=== PATIENT | female | born 1950 | race Caucasian/White ===

== ENCOUNTER 2017-09-28 14:20 | Inpatient (IN) | payer BC, OTHER ==
[2017-09-28 16:19] LABS: PLATELET COUNT 389 10^3/uL (150-400)
[2017-09-28] MEDS ORDERED: NS 1,000 ML IV ONE ×2 (17:24→19:55)
--- NOTE | 2017-09-28 17:31 | EDPHY ---
H & P Smoking Status: Former smoker Time Seen by Provider: 09/28/17 14:55 HPI/ROS: CHIEF COMPLAINT: Depression HISTORY OF PRESENT ILLNESS: 66-year-old female presents to the emergency department by private vehicle with her with ongoing symptoms of depression. The patient is scheduled for ECT tomorrow morning. She is here for medical clearance. Patient has no physical complaints. She denies chest pain or difficulty breathing. Denies abdominal pain. No vomiting or diarrhea. No headache. No neck or back pain. No reported trauma. She states that her appetite has been okay. No urinary symptoms. REVIEW OF SYSTEMS: Constitutional: No fever, no chills. Eyes: No double or blurry vision. ENT: No sore throat. Respiratory: No cough, no shortness of breath. Cardiac: No chest pain. Gastrointestinal: No abdominal pain, vomiting or diarrhea. Genitourinary: No dysuria. Musculoskeletal: No neck or back pain. Skin: No rashes. Neurological: No headache. (Mirlande Hunt) Past Medical/Surgical History: Depression, diabetic (Mirlande Hunt) Social History: (Mirlande Hunt) Physical Exam: General Appearance: Alert, no distress. at bedside. Eyes: Pupils equal and round. Extraocular motions are all intact. ENT: Mouth: Mucous membranes moist. Poor dentition. Respiratory: No wheezing, rhonchi, or rales, lungs are clear to auscultation. Cardiovascular: Regular rate and rhythm. Gastrointestinal: Abdomen is soft and nontender, no masses, no rebound or guarding, bowel sounds normal. Neurological: Alert and oriented x 3, cranial nerves II through XII grossly intact Skin: Warm and dry, no rashes. Musculoskeletal: Nontender to palpate along the cervical, thoracic or lumbar spine. Neck is supple. Extremities: Full range of motion and no peripheral edema. Psychiatric: Patient is oriented X 3, there is no agitation. (Mirlande Hunt) Constitutional: Initial Vital Signs Temperature (C) 36.8 C 09/28/17 14:34 Heart Rate 86 09/28/17 14:34 Respiratory Rate 18 09/28/17 14:34 Blood Pressure 103/78 09/28/17 14:34 O2 Sat (%) 97 09/28/17 14:34 O2 Delivery Mode Room Air Allergies/Adverse Reactions: No Known Allergies Allergy (Verified 09/28/17 14:36) Home Medications: Medication Instructions Recorded Atorvastatin Calcium [Lipitor 10 10 mg PO DAILY 09/28/17 mg (*)] Insulin Aspart [novoLOG] unit SQ 09/28/17 Insulin Glargine [Lantus 100 15 units SC BID 09/28/17 UNITS/ML (*)] Losartan Potassium [Cozaar 25 mg 25 mg PO 09/28/17 (*)] Lurasidone HCl [Latuda] 80 mg PO 09/28/17 Pantoprazole Sodium [Protonix 40mg 09/28/17 (*)] Pregabalin [Lyrica 50mg (*)] 50 mg PO BID 09/28/17 Triazolam [Halcion 0.25MG (*)] 0.25 mg PO HS 09/28/17 amLODIPine BESYLATE [Norvasc 2.5 2.5 mg PO DAILY 09/28/17 mg (*)] buPROPion [Wellbutrin] 300 mg PO 09/28/17 metFORMIN HCL [Metformin HCl ER] 1,000 mg PO 09/28/17 Medical Decision Making ED Course/Re-evaluation: This patient presents for ECT tomorrow. She has severe depression and has not been eating or drinking much. This is the most likely reason for her like to light abnormality. 1 L of normal saline given, with some correction in electrolytes. However, her bicarb remains low after the 1st L of normal saline , so a 2nd L of normal saline was given. Encouraged patient to drink plenty of fluids. She is medically cleared for mental health evaluation. She was seen by [facility] and will be transferred to [address] [place] [address] for ECT tomorrow. (Anel Fletcher) 66-year-old female presents to the emergency department for depression. She is here for medical clearance for scheduled ECT tomorrow. Patient had an EKG which revealed normal sinus rhythm. This is reviewed with Dr. Anel Fletcher. See interpretation in trace master. The case was discussed with Dr. Anel Fletcher, supervising physician, who did not directly evaluate the patient but agrees with treatment and plan. Laboratory studies reveal elevated potassium 5.8. CO2 14, BUN 31, creatinine 1.3, glucose 200 Patient received 1 L of IV normal saline and then her chemistries will be redrawn for evaluation. Chemistries include at after IV normal saline. Patient has been medically cleared and will be transferred to the mental health floor. (Mirlande Hunt) Differential Diagnosis: Depression including functional and major depression, situational depression, medication side effect, drugs and alcohol abuse. (Mirlande Hunt) - Data Points Laboratory Results: Laboratory Results 09/28/17 15:20 09/28/17 19:23 09/28/17 16:00 Iron 33.0 mcg/dL L mcg/dL (37.0-170.0) TIBC 260 ug/dL ug/dL (260-490) Iron Saturation 13 % L % (20-55) Medications Given: Amlodipine Besylate (Norvasc) 2.5 mg PO DAILY [facility] Stop: 03/28/18 08:59 Last Admin: 09/30/17 08:50 Dose: 2.5 mg Atorvastatin Calcium (Lipitor) 10 mg PO HS DARREL Stop: 03/27/18 22:29 Last Admin: 09/29/17 21:21 Dose: 10 mg Bupropion HCl (Wellbutrin Xl) 300 mg PO HS DARREL Stop: 03/27/18 22:44 Last Admin: 09/29/17 21:21 Dose: 300 mg Cholecalciferol (Vitamin D) 8,000 units PO DAILY [facility]REL Stop: 03/29/18 08:59 Last Admin: 09/30/17 08:47 Dose: 8,000 units Insulin Glargine (Lantus Syringe) 15 units SC BID DARREL Stop: 03/27/18 22:29 Last Admin: 09/30/17 08:52 Dose: 15 units Insulin Human Lispro (Humalog Lispro) 0 unit SC BID [facility] PRN Reason: Protocol Stop: 03/27/18 22:29 Last Admin: 09/30/17 08:53 Dose: Not Given Losartan Potassium (Cozaar) 25 mg PO DAILY DARREL Stop: 03/28/18 08:59 Last Admin: 09/30/17 08:54 Dose: 25 mg Lurasidone HCl (Latuda) 40 mg PO HS [facility] Stop: 03/28/18 20:59 Last Admin: 09/29/17 21:22 Dose: 40 mg Metformin HCl (Glucophage) 1,000 mg PO BIDMEAL DARREL Stop: 03/28/18 07:59 Last Admin: 09/30/17 08:52 Dose: 1,000 mg Pantoprazole Sodium (Protonix) 40 mg PO DAILY DARREL Stop: 03/28/18 08:59 Last Admin: 09/30/17 08:52 Dose: 40 mg Pregabalin (Lyrica) 50 mg PO BID DARREL Stop: 03/27/18 22:29 Last Admin: 09/30/17 08:50 Dose: 50 mg Quetiapine Fumarate (Seroquel) 25 mg PO HS DARREL Stop: 03/28/18 20:59 Last Admin: 09/29/17 21:23 Dose: 25 mg Discontinued Medications Citric Acid/Sodium Citrate (Bicitra) 30 ml PO ONCALL ONE Stop: 09/29/17 10:17 Last Admin: 09/29/17 14:18 Dose: 30 ml Sodium Chloride (Ns) 1,000 mls @ 0 mls/hr IV ONCE ONE PRN Reason: Wide Open Stop: 09/28/17 17:25 Last Admin: 09/28/17 18:30 Dose: 1,000 mls Sodium Chloride (Ns) 1,000 mls @ 0 mls/hr IV ONCE ONE; Wide Open PRN Reason: Protocol Stop: 09/28/17 19:56 Last Admin: 09/28/17 19:55 Dose: 1,000 mls Sodium Chloride (Ns) 1,000 mls @ 0 mls/hr IV ONCE ONE PRN Reason: TKO Stop: 09/29/17 10:17 Last Admin: 09/29/17 14:19 Dose: 1,000 mls Lidocaine HCl (Xylocaine-Mpf 2% Vial) 0.1 - 0.5 ml ID ONCE ONE Stop: 09/29/17 10:17 Last Admin: 09/29/17 23:20 Dose: Not Given Lurasidone HCl (Latuda) 80 mg PO HS DARREL Stop: 03/27/18 22:29 Last Admin: 09/28/17 22:54 Dose: 80 mg Ondansetron HCl (Zofran Odt) 4 mg PO ONCALL ONE Stop: 09/29/17 10:17 Last Admin: 09/29/17 14:19 Dose: 4 mg Ondansetron HCl (Zofran Odt) 4 mg PO ONCALL ONE Stop: 09/29/17 15:00 Last Admin: 09/29/17 23:20 Dose: Not Given Triazolam (Halcion) 0.25 mg PO HS [facility] Stop: 03/27/18 22:29 Last Admin: 09/28/17 23:17 Dose: 0.25 mg Departure - Departure Disposition: [facility] IP Clinical Impression: Dehydration Depression Qualifiers: Depression Type: unspecified Qualified Code(s): F32.9 - Major depressive disorder, single episode, unspecified Condition: Fair
[2017-09-28] MEDS ORDERED: D50W 25 GM/50 ML SYR IVP PRN (22:19)
[2017-09-28] MEDS ORDERED: ACETAMINOPHEN 325 MG TAB PO PRN (22:28)
[2017-09-28] MEDS ORDERED: MAGNESIUM HYDROXIDE 30 ML UDCUP PO PRN (22:29)
[2017-09-28] MEDS ORDERED: MAG HYDROX/AL HYDROX/SIMETH 30 ML UDCUP PO PRN (22:29)
[2017-09-28] MEDS ORDERED: LURASIDONE HCL 80 MG TAB PO SCH (22:30)
[2017-09-28] MEDS ORDERED: TRIAZOLAM 0.25 MG TAB PO SCH (22:30)
[2017-09-28] MEDS: ATORVASTATIN CALCIUM 10 MG TAB PO SCH (22:54)
[2017-09-28] MEDS: PREGABALIN 50 MG CAP PO SCH (22:54)
[2017-09-28] MEDS: buPROPion XL 150 MG TAB PO SCH (22:54)
[2017-09-28] MEDS: INSULIN GLARGINE 100 UNITS/ML SYRINGE SC SCH (23:17)
[2017-09-28] MEDS: INSULIN LISPRO 100 UNIT/ML SC SCH (23:20)
[2017-09-29] MEDS ORDERED: ETOMIDATE 20 MG/10 ML VIAL ONE (07:18)
[2017-09-29] MEDS ORDERED: fentaNYL 100 MCG/2 ML INJ ONE (07:18)
[2017-09-29] MEDS ORDERED: ROCURONIUM 50 MG/5 ML VIAL ONE (07:18)
[2017-09-29] MEDS ORDERED: SUCCINYLCHOLINE CHLORIDE 200 MG/10 ML VIAL ONE (07:18)
[2017-09-29] MEDS ORDERED: GLYCOPYRROLATE 0.2 MG/1 ML VIAL ONE (07:18)
[2017-09-29] MEDS ORDERED: MIDAZOLAM 2 MG/2 ML VIAL ONE (07:18)
[2017-09-29] MEDS ORDERED: ONDANSETRON 4 MG/2 ML VIAL ONE (07:18)
--- NOTE | 2017-09-29 08:57 | CPEKG ---
Heart Rate: 70 RR Interval: 857 P-R Interval: 160 QRSD Interval: 84 QT Interval: 408 QTC Interval: 441 P [place]: 20 QRS [place]: 8 T Wave [place]: 70 EKG Severity - NORMAL ECG - EKG Impression: SINUS RHYTHM Electronically Signed By: Tevin Qureshi 29-Sep-2017 11:26:12
[2017-09-29] MEDS ORDERED: PREGABALIN 75 MG CAP PO SCH (09:00)
[2017-09-29] MEDS ORDERED: LURASIDONE HCL 80 MG TAB PO SCH (10:14)
[2017-09-29] MEDS ORDERED: NS 1,000 ML IV ONE (10:16)
[2017-09-29] MEDS ORDERED: LIDOCAINE 2% 5 ML SDV ID ONE (10:16)
[2017-09-29] MEDS ORDERED: ONDANSETRON DISINTEGRATING 4 MG TAB PO ONE ×2 (10:16→14:59)
[2017-09-29] MEDS ORDERED: CITRIC ACID/SODIUM CITRATE 30 ML UDCUP PO ONE (10:16)
[2017-09-29] MEDS: LOSARTAN POTASSIUM 25 MG TAB PO SCH ×3 (10:52→12:25)
[2017-09-29] MEDS: PANTOPRAZOLE SODIUM 40 MG TAB PO SCH (10:54)
[2017-09-29] MEDS: amLODIPine BESYLATE 5 MG TAB PO SCH ×2 (10:54→12:23)
[2017-09-29] MEDS: INSULIN GLARGINE 100 UNITS/ML SYRINGE SC SCH ×2 (10:55→21:33)
[2017-09-29] MEDS: INSULIN LISPRO 100 UNIT/ML SC SCH ×2 (12:37→23:24)
[2017-09-29] MEDS: metFORMIN HCL 500 MG TAB PO SCH ×2 (12:39→17:11)
[2017-09-29] MEDS: PREGABALIN 50 MG CAP PO SCH ×2 (14:19→21:23)
--- NOTE | 2017-09-29 14:39 | BCON ---
[f rep st] BEHAVIORAL HEALTH CONSULTATION INTERNAL MEDICINE CONSULTATION DATE OF CONSULTATION: 09/29/2017 REFERRING PHYSICIAN: Vik Triplett MD REASON FOR REFERRAL: Medical clearance for inpatient behavioral health stay. HISTORY OF PRESENT ILLNESS: This patient came to the emergency department with her with ongoing symptoms of depression. She was planning to have electroconvulsive therapy today. She had no complaints in the emergency department and currently has no acute complaints. She was evaluated by the Mental Health Team and admitted for further psychiatric care. She is currently without any acute complaints. PAST MEDICAL HISTORY: 1. Pneumonia in July with a 3-week hospital stay. 2. Obesity with recent weight loss due to her hospitalization. 3. Diabetes mellitus type 2. 4. Chronic renal insufficiency. 5. Diabetic peripheral neuropathy. 6. Hypertension. 7. Dyslipidemia. PAST SURGICAL HISTORY: She has had a tonsillectomy, an appendectomy, back surgery for spinal stenosis, and bilateral carpal tunnel release. MEDICATIONS: Prior to admission: 1. Metformin 1000 mg p.o. twice daily. 2. Bupropion 300 mg p.o. daily. 3. Amlodipine 2.5 mg p.o. daily. 4. Triazolam 0.25 mg p.o. at bedtime. 5. Pregabalin 50 mg p.o. twice daily. 6. Pantoprazole. 7. Lurasidone 80 mg p.o. daily. 8. Losartan 25 mg p.o. daily. 9. Insulin glargine 15 units subcutaneous twice daily. 10. Insulin aspart. 11. Atorvastatin 10 mg p.o. daily. ALLERGIES: There are no known drug allergies. SOCIAL HISTORY: She is . She lives with her . She has 2 children who live out of state. She is a retired business operations manager. She is a former smoker. FAMILY HISTORY: Noncontributory. REVIEW OF SYSTEMS: She reports that she takes triazolam every night for sleep. She denies snoring and says she sleeps well. She has had some weight loss through her recent hospitalization, and has had a reduced appetite related to her depression. She denies nausea, vomiting, constipation, or diarrhea. She denies chest pain or palpitations. She denies cough or dyspnea. She denies fevers or chills. She denies dysuria or urinary frequency. Otherwise, a 10- point review of systems is negative. PHYSICAL EXAM: VITAL SIGNS: Blood pressure is 146/61, heart rate is 63, respiratory rate is 12, oxygen saturation is 96% on room air, temperature is 36.5 degrees centigrade. Her weight is 106.6 kg for a body mass index of 31. GENERAL: This is an obese woman, in bed with the lights off. Agrees to turn the lights on, and requires assistance to arise to seated from supine. She is cooperative and in no acute distress. HEENT: She is hard of hearing. Extraocular movements are intact. Pupils are equal, round, reactive to light. Mucous membranes are moist. Dentition is in good condition. She has a moderately crowded airway, Mallampati class 3. NECK: Supple. HEART: Regular rate and rhythm with no murmurs, rubs, or gallops. LUNGS: Clear to auscultation bilaterally. ABDOMEN: Soft, nontender, nondistended with normoactive bowel sounds. EXTREMITIES: There is no cyanosis, clubbing, or edema. Radial pulses are 2+ bilaterally. Pedal pulses are trace bilaterally. NEUROLOGIC: She is alert and oriented x3. Cranial nerves 2-12 are grossly intact. There is no focal weakness, but she has generalized weakness and requires assistance to arise to seated from supine. Sensation is intact to light touch overall, but profoundly lost over her feet and lower legs to light touch. LAB STUDIES: From the emergency department, CBC revealed anemia with a hemoglobin of 12.2 and hematocrit of 36.7, and an elevated white blood cell count at 13.65 with no left shift. Serum chemistry initially showed an anion gap, with a potassium of 5.8 and carbon dioxide of 14, the anion gap was at 20. She had an elevated BUN of 31 and creatinine of 1.3, with estimated GFR 41. She was hydrated with a liter of normal saline, and potassium normalized to 5.2 , and anion gap normalized as well. Carbon dioxide remained somewhat low at 15. She was subsequently given another liter of normal saline. Blood sugars were elevated in the range of 118-200. TSH was normal at 3.3. Toxicology screen in the urine was negative for any substances of abuse. EKG, interpreted by me, showed normal sinus rhythm. On review of recent previous labs, in June of this year, hemoglobin A1c was 6.4. Liver function tests were within normal limits. She did not have anemia at that time. She had an elevated urinary microalbumin at 52.1. IMPRESSION AND RECOMMENDATIONS: 1. Mental health issues, pending further evaluation and management per Psychiatry and the mental health team. 2. Debility. Physical therapy and Occupational therapy evaluations have been ordered by the attending psychiatrist, and this is quite appropriate for her to improve her functional status prior to return to home. 3. Chronic renal insufficiency, stage 3. She should avoid nephrotoxic drugs, and there should be some caution regarding dehydration, especially when she is nil per os for electroconvulsive therapy. Adequate hydration should be encouraged when she is not nil per os. 4. Diabetes mellitus type 2 with the last hemoglobin A1c of 6.4. She was not certain whether her glargine insulin had been reduced following her weight loss. She does report that she had 1 episode of hypoglycemia with a blood sugar of 22, otherwise blood sugars fasting have generally been in the range of 80-100. Continue to monitor blood sugars and consider reduction of insulin glargine, should she be running low. Would advise continuing metformin, which has been held today, though I am not clear whether there is an indication to hold metformin with electroconvulsive therapy, so I will defer to Psychiatry on that issue. 5. Diabetic peripheral neuropathy. This may affect her safety ambulating. She has a front-wheeled walker in the room, and will have a physical therapy evaluation. 6. Hypertension. Likely has adequate control with current antihypertensives. Continue to monitor and consider dose adjustment if necessary. 7. Dyslipidemia. Continue atorvastatin. 8. Anemia, unclear etiology. Will add on a reticulocyte count and an iron panel to the blood that was drawn yesterday in the emergency department. I see no medical contraindications to this patient's continued stay on the inpatient behavioral health unit, or to any psychiatric medications or procedures. Thank you very much for including me in the care of this patient. Please do not hesitate to contact me or the hospitalist service should there be need for further medical evaluation. /[id number]/MODL MTDD
[2017-09-29] MEDS ORDERED: PROMETHAZINE HCL 25 MG TAB PO PRN (14:57)
[2017-09-29] MEDS ORDERED: HYDROCODONE/APAP 5/325 TAB PO PRN (14:57)
[2017-09-29] MEDS ORDERED: HYDROCODONE/APAP 5/325 TAB ONE (16:10)
[2017-09-29] MEDS ORDERED: QUEtiapine FUMARATE 25 MG TAB PO SCH (21:00)
[2017-09-29] MEDS: buPROPion XL 150 MG TAB PO SCH (21:21)
[2017-09-29] MEDS: ATORVASTATIN CALCIUM 10 MG TAB PO SCH (21:21)
[2017-09-29] MEDS: LURASIDONE HCL 40 MG TAB PO SCH (21:22)
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
[2017-09-30] MEDS: CHOLECALCIFEROL VIT D3 1,000 UNITS TAB PO SCH (08:47)
[2017-09-30] MEDS: PREGABALIN 50 MG CAP PO SCH (08:50)
[2017-09-30] MEDS: amLODIPine BESYLATE 5 MG TAB PO SCH (08:50)
[2017-09-30] MEDS: PANTOPRAZOLE SODIUM 40 MG TAB PO SCH (08:52)
[2017-09-30] MEDS: INSULIN GLARGINE 100 UNITS/ML SYRINGE SC SCH ×2 (08:52→20:26)
[2017-09-30] MEDS: metFORMIN HCL 500 MG TAB PO SCH ×2 (08:52→17:58)
[2017-09-30] MEDS: INSULIN LISPRO 100 UNIT/ML SC SCH ×2 (08:53→20:35)
[2017-09-30] MEDS: LOSARTAN POTASSIUM 25 MG TAB PO SCH (08:54)
[2017-09-30] MEDS ORDERED: QUEtiapine FUMARATE 25 MG TAB PO SCH (13:34)
--- NOTE | 2017-09-30 13:41 | SOAPPROG ---
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 depression, and DPN Plan: 09/30/17 13:35 Pt interviewed in her room, while she was lying down, fully awake. She had just been out in day room area, per patient as MD commented on his wish that she be more in the milieu. She felt only moderate [place], no nausea with first ECT. Tatum x1 with good effect. Pt felt no change in mood. Sleep was "poor" with d/c halcion, and start of seroquel 25 mg. Latuda remains at half her dose ( 40mg). SHe was found next to bed last evening. No injury sustained. Will increase seroquel to 50 mg and instructed pt to get up from bed more slowly. Will likely reduce Latuda to 20 mg soon. May need to try other sleep aids if seroquel 50 mg inadequate. Pt will likely dispo to Assisted Living post d/c. PT consult still pnd. Objective: Vital Signs Temp Pulse Resp BP Pulse Ox 36.8 C 103 H 16 123/55 H 93 09/30/17 06:00 09/30/17 06:00 09/30/17 06:00 09/30/17 06:00 09/30/17 06:00 Laboratory Results 09/29/17 13:47 ICD10 Worksheet Patient Problems: Problems Problem Status Onset Bipolar affective disorder, depressed Acute Dehydration Acute Depression Acute Diabetes Acute
--- NOTE | 2017-09-30 13:55 | SOAPPROG ---
SOAP Progress Note Assessment/Plan: Assessment: Iron deficiency anemia. Prescribed ferrous sulfate 325 mg p.o. q.day. This should continue for a month. Advise repeat CBC and iron panel in 1 month. She should have age-appropriate colon cancer screening as an outpatient. Diabetes mellitus type 2, adequate control with hemoglobin A1c of 6.5. No need to adjust insulin at present. 09/30/17 13:54 Subjective: Labs reviewed. Objective: Vital Signs Temp Pulse Resp BP Pulse Ox 36.8 C 103 H 16 123/55 H 93 09/30/17 06:00 09/30/17 06:00 09/30/17 06:00 09/30/17 06:00 09/30/17 06:00 Laboratory Results 09/29/17 13:47 ICD10 Worksheet Patient Problems: Problems Problem Status Onset Bipolar affective disorder, depressed Acute Dehydration Acute Depression Acute Diabetes Acute
[2017-09-30] MEDS: FERROUS SULFATE 325 MG TAB PO SCH (17:58)
[2017-09-30] MEDS: LURASIDONE HCL 40 MG TAB PO SCH (20:25)
[2017-09-30] MEDS: buPROPion XL 150 MG TAB PO SCH (20:25)
[2017-09-30] MEDS: QUEtiapine FUMARATE 50 MG TAB PO SCH (20:25)
[2017-09-30] MEDS: ATORVASTATIN CALCIUM 10 MG TAB PO SCH (20:26)
[2017-10-01] MEDS ORDERED: CITRIC ACID/SODIUM CITRATE 30 ML UDCUP PO ONE (04:00)
[2017-10-01] MEDS ORDERED: NS 1,000 ML IV ONE (04:00)
[2017-10-01] MEDS ORDERED: LIDOCAINE 2% 5 ML SDV ID ONE (04:00)
[2017-10-01] MEDS ORDERED: fentaNYL 100 MCG/2 ML INJ ONE (06:52)
[2017-10-01] MEDS ORDERED: GLYCOPYRROLATE 0.2 MG/1 ML VIAL ONE (06:53)
[2017-10-01] MEDS ORDERED: KETOROLAC 30 MG/1 ML SDV ONE (06:53)
[2017-10-01] MEDS ORDERED: ROCURONIUM 50 MG/5 ML VIAL ONE (06:53)
[2017-10-01] MEDS ORDERED: SUCCINYLCHOLINE CHLORIDE 200 MG/10 ML VIAL ONE (06:53)
[2017-10-01] MEDS ORDERED: ONDANSETRON 4 MG/2 ML VIAL ONE (06:53)
[2017-10-01] MEDS ORDERED: MIDAZOLAM 2 MG/2 ML VIAL ONE (06:53)
[2017-10-01] MEDS ORDERED: ETOMIDATE 20 MG/10 ML VIAL ONE (06:53)
[2017-10-01] MEDS: amLODIPine BESYLATE 5 MG TAB PO SCH (09:11)
[2017-10-01] MEDS: PANTOPRAZOLE SODIUM 40 MG TAB PO SCH (09:12)
[2017-10-01] MEDS: LOSARTAN POTASSIUM 25 MG TAB PO SCH (09:14)
[2017-10-01] MEDS: INSULIN LISPRO 100 UNIT/ML SC SCH ×2 (09:15→20:41)
[2017-10-01] MEDS ORDERED: ONDANSETRON DISINTEGRATING 4 MG TAB ONE (11:25)
[2017-10-01] MEDS ORDERED: LURASIDONE HCL 40 MG TAB PO SCH (12:00)
[2017-10-01] MEDS ORDERED: ONDANSETRON DISINTEGRATING 4 MG TAB PO PRN (12:02)
[2017-10-01] MEDS ORDERED: PROMETHAZINE HCL 25 MG TAB PO PRN (12:02)
[2017-10-01] MEDS ORDERED: HYDROCODONE/APAP 5/325 TAB PO PRN (12:02)
[2017-10-01] MEDS ORDERED: ONDANSETRON DISINTEGRATING 4 MG TAB PO ONE (12:03)
[2017-10-01] MEDS ORDERED: HYDROCODONE/APAP 5/325 TAB ONE (12:27)
--- NOTE | 2017-10-01 12:32 | SOAPPROG ---
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 depression, and DPN Plan: 09/30/17 13:35 Pt interviewed in her room, while she was lying down, fully awake. She had just been out in day room area, per patient as MD commented on his wish that she be more in the milieu. She felt only moderate LOCKWOOD, no nausea with first ECT. [place] x1 with good effect. Pt felt no change in mood. Sleep was "poor" with d/c halcion, and start of seroquel 25 mg. Latuda remains at half her dose ( 40mg). SHe was found next to bed last evening. No injury sustained. Will increase seroquel to 50 mg and instructed pt to get up from bed more slowly. Will likely reduce Latuda to 20 mg soon. May need to try other sleep aids if seroquel 50 mg inadequate. Pt will likely dispo to Assisted Living post d/c. PT consult still pnd. 10/01/17 12:27 Pt underwent ECT #2 today. No clinical change. Will add torradol for LOCKWOOD. Will cont to taper latuda to 20 mg. Started Iron. Pt states had Colonoscopy 4 years ago and was told not needed to return for 10 years. Will check hemoccult test. hs-CRP high, not surprising in context fo DM. May speak to benefit of anti inflammatory for depression. MTHFR pnd too. Will try to cont seroquel 50 for sleep for a couple of more nights before re-thinking it. Vit E and/or Gingko biloba can be tried as outpt for TD Objective: Vital Signs Temp Pulse Resp BP Pulse Ox 36.4 C 80 14 145/93 H 93 10/01/17 06:00 10/01/17 10:00 10/01/17 10:00 10/01/17 10:00 10/01/17 10:00 Laboratory Results 09/29/17 13:47 Laboratory Tests 09/28/17 09/28/17 09/28/17 15:20 16:00 16:00 Hct Absolute Retic Percent Retic Iron 33.0 L TIBC 260 Iron Saturation 13 L C-React Prot High Sens 5.3 TSH 3.300 09/29/17 13:47 Hct 35.4 L Absolute Retic 0.058 Percent Retic 1.41 Iron TIBC Iron Saturation C-React Prot High Sens TSH ICD10 Worksheet Patient Problems: Problems Problem Status Onset Bipolar affective disorder, depressed Acute Dehydration Acute Depression Acute Diabetes Acute
[2017-10-01] MEDS: CHOLECALCIFEROL VIT D3 1,000 UNITS TAB PO SCH (13:19)
[2017-10-01] MEDS: FERROUS SULFATE 325 MG TAB PO SCH (13:19)
[2017-10-01] MEDS: metFORMIN HCL 500 MG TAB PO SCH ×2 (13:20→18:08)
[2017-10-01] MEDS: INSULIN GLARGINE 100 UNITS/ML SYRINGE SC SCH (20:18)
[2017-10-01] MEDS: ATORVASTATIN CALCIUM 10 MG TAB PO SCH (20:19)
[2017-10-01] MEDS: PREGABALIN 50 MG CAP PO SCH (20:19)
[2017-10-01] MEDS: QUEtiapine FUMARATE 50 MG TAB PO SCH (20:19)
[2017-10-01] MEDS: buPROPion XL 150 MG TAB PO SCH (20:19)
[2017-10-02] MEDS: INSULIN GLARGINE 100 UNITS/ML SYRINGE SC SCH ×2 (09:03→20:16)
[2017-10-02] MEDS: metFORMIN HCL 500 MG TAB PO SCH ×2 (09:08→18:22)
[2017-10-02] MEDS: CHOLECALCIFEROL VIT D3 1,000 UNITS TAB PO SCH (09:08)
[2017-10-02] MEDS: PREGABALIN 50 MG CAP PO SCH ×2 (09:09→18:37)
[2017-10-02] MEDS: FERROUS SULFATE 325 MG TAB PO SCH (09:09)
[2017-10-02] MEDS: PANTOPRAZOLE SODIUM 40 MG TAB PO SCH (09:09)
[2017-10-02] MEDS: INSULIN LISPRO 100 UNIT/ML SC SCH ×2 (10:17→20:15)
[2017-10-02] MEDS: amLODIPine BESYLATE 5 MG TAB PO SCH (12:17)
[2017-10-02] MEDS: LOSARTAN POTASSIUM 25 MG TAB PO SCH (12:17)
--- NOTE | 2017-10-02 12:47 | SOAPPROG ---
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 depression, and DPN Plan: 09/30/17 13:35 Pt interviewed in her room, while she was lying down, fully awake. She had just been out in day room area, per patient as MD commented on his wish that she be more in the milieu. She felt only moderate LOCKWOOD, no nausea with first ECT. [place] x1 with good effect. Pt felt no change in mood. Sleep was "poor" with d/c halcion, and start of seroquel 25 mg. Latuda remains at half her dose ( 40mg). SHe was found next to bed last evening. No injury sustained. Will increase seroquel to 50 mg and instructed pt to get up from bed more slowly. Will likely reduce Latuda to 20 mg soon. May need to try other sleep aids if seroquel 50 mg inadequate. Pt will likely dispo to Assisted Living post d/c. PT consult still pnd. 10/01/17 12:27 Pt underwent ECT #2 today. No clinical change. Will add torradol for LOCKWOOD. Will cont to taper latuda to 20 mg. Started Iron. Pt states had Colonoscopy 4 years ago and was told not needed to return for 10 years. Will check hemoccult test. hs-CRP high, not surprising in context fo DM. May speak to benefit of anti inflammatory for depression. MTHFR pnd too. Will try to cont seroquel 50 for sleep for a couple of more nights before re-thinking it. Vit E and/or Gingko biloba can be tried as outpt for TD 10/02/17 12:4 10/02 Pt in day room eating lunch, Had another witnessed near-fall. Will place on LOS. Will d/c latuda altogether to decrease med SE burden. Will cont seroquel 50 mg qhs as pt said "its working" indicating sleep is better. Will cont acute inpt ECT. MTHFR and hemoccult pnd. 10/02/17 12:47 Objective: Vital Signs Temp Pulse Resp BP Pulse Ox 36.6 C 104 H 12 111/69 94 10/02/17 12:20 10/02/17 12:20 10/02/17 12:20 10/02/17 12:20 10/02/17 12:20 Laboratory Results 09/29/17 13:47 ICD10 Worksheet Patient Problems: Problems Problem Status Onset Bipolar affective disorder, depressed Acute Dehydration Acute Depression Acute Diabetes Acute
[2017-10-02] MEDS: ATORVASTATIN CALCIUM 10 MG TAB PO SCH (18:44)
[2017-10-02] MEDS: buPROPion XL 150 MG TAB PO SCH (18:44)
[2017-10-02] MEDS: QUEtiapine FUMARATE 50 MG TAB PO SCH (18:45)
[2017-10-03] MEDS ORDERED: NS 1,000 ML IV ONE (04:00)
[2017-10-03] MEDS ORDERED: LIDOCAINE 2% 5 ML SDV ID ONE (04:00)
[2017-10-03] MEDS ORDERED: CITRIC ACID/SODIUM CITRATE 30 ML UDCUP PO ONE (04:00)
[2017-10-03] MEDS ORDERED: ONDANSETRON 4 MG/2 ML VIAL ONE (05:50)
[2017-10-03] MEDS ORDERED: GLYCOPYRROLATE 0.2 MG/1 ML VIAL ONE (05:50)
[2017-10-03] MEDS ORDERED: fentaNYL 100 MCG/2 ML INJ ONE (05:50)
[2017-10-03] MEDS ORDERED: KETOROLAC 30 MG/1 ML SDV ONE (05:50)
[2017-10-03] MEDS ORDERED: ETOMIDATE 20 MG/10 ML VIAL ONE (05:50)
[2017-10-03] MEDS ORDERED: ROCURONIUM 50 MG/5 ML VIAL ONE (05:50)
[2017-10-03] MEDS ORDERED: MIDAZOLAM 2 MG/2 ML VIAL ONE (05:50)
[2017-10-03] MEDS ORDERED: SUCCINYLCHOLINE CHLORIDE 200 MG/10 ML VIAL ONE (05:51)
[2017-10-03] MEDS: PANTOPRAZOLE SODIUM 40 MG TAB PO SCH (08:41)
[2017-10-03] MEDS: LOSARTAN POTASSIUM 25 MG TAB PO SCH (08:41)
[2017-10-03] MEDS: amLODIPine BESYLATE 5 MG TAB PO SCH (08:43)
[2017-10-03] MEDS: FERROUS SULFATE 325 MG TAB PO SCH (08:43)
[2017-10-03] MEDS: INSULIN GLARGINE 100 UNITS/ML SYRINGE SC SCH ×2 (08:44→19:26)
[2017-10-03] MEDS: metFORMIN HCL 500 MG TAB PO SCH ×2 (09:28→17:12)
[2017-10-03] MEDS: INSULIN LISPRO 100 UNIT/ML SC SCH ×2 (10:23→19:26)
[2017-10-03] MEDS: PREGABALIN 50 MG CAP PO SCH ×2 (11:48→19:19)
[2017-10-03] MEDS ORDERED: ONDANSETRON DISINTEGRATING 4 MG TAB ONE (14:23)
[2017-10-03] MEDS ORDERED: OXYCODONE/APAP 5/325 TAB PO PRN (14:53)
[2017-10-03] MEDS ORDERED: ONDANSETRON DISINTEGRATING 4 MG TAB PO PRN (14:53)
[2017-10-03] MEDS ORDERED: PROMETHAZINE HCL 25 MG TAB PO PRN (14:53)
--- NOTE | 2017-10-03 15:03 | SOAPPROG ---
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 depression, and DPN Plan: 09/30/17 13:35 Pt interviewed in her room, while she was lying down, fully awake. She had just been out in day room area, per patient as MD commented on his wish that she be more in the milieu. She felt only moderate LOCKWOOD, no nausea with first ECT. [place] x1 with good effect. Pt felt no change in mood. Sleep was "poor" with d/c halcion, and start of seroquel 25 mg. Latuda remains at half her dose ( 40mg). SHe was found next to bed last evening. No injury sustained. Will increase seroquel to 50 mg and instructed pt to get up from bed more slowly. Will likely reduce Latuda to 20 mg soon. May need to try other sleep aids if seroquel 50 mg inadequate. Pt will likely dispo to Assisted Living post d/c. PT consult still pnd. 10/01/17 12:27 Pt underwent ECT #2 today. No clinical change. Will add torradol for LOCKWOOD. Will cont to taper latuda to 20 mg. Started Iron. Pt states had Colonoscopy 4 years ago and was told not needed to return for 10 years. Will check hemoccult test. hs-CRP high, not surprising in context fo DM. May speak to benefit of anti inflammatory for depression. MTHFR pnd too. Will try to cont seroquel 50 for sleep for a couple of more nights before re-thinking it. Vit E and/or Gingko biloba can be tried as outpt for TD 10/02/17 12:4 10/02 Pt in day room eating lunch, Had another witnessed near-fall. Will place on LOS. Will d/c latuda altogether to decrease med SE burden. Will cont seroquel 50 mg qhs as pt said "its working" indicating sleep is better. Will cont acute inpt ECT. MTHFR and hemoccult pnd. 10/02/17 12:47 10/03/17 14:59 Pt interviewed pre ECT. She reports sleeping better with seroquel 50, minus the latuda. Appetite not so great. Her QIDs remains 17 with a score of 1 on Q 12 ( indicating some SI). Mood still subjectively unchanged, poor. However, pt appears objectively a bit brighter in affect, even evincing a smile which I had yet to see. She was told of this encouraging observation. It is, of course, unclear whether objective brightening is function of ECT vs d/c of higher dose latuda with its presumed EPS/blunting. Appreciate CC note re attempts to find post d/c placement for pt in order to finish acute course in some structured settiing away from home. Objective: Vital Signs Temp Pulse Resp BP Pulse Ox 36.7 C 62 12 127/58 H 95 10/03/17 13:30 10/03/17 13:30 10/03/17 13:30 10/03/17 13:30 10/03/17 13:30 Laboratory Results 09/29/17 13:47 ICD10 Worksheet Patient Problems: Problems Problem Status Onset Bipolar affective disorder, depressed Acute Dehydration Acute Depression Acute Diabetes Acute
[2017-10-03] MEDS: CHOLECALCIFEROL VIT D3 1,000 UNITS TAB PO SCH (16:22)
[2017-10-03] MEDS: POLYETHYLENE GLYCOL 3350 17 GM PKT PO SCH (17:10)
[2017-10-03] MEDS: QUEtiapine FUMARATE 50 MG TAB PO SCH (19:19)
[2017-10-03] MEDS: ATORVASTATIN CALCIUM 10 MG TAB PO SCH (19:19)
[2017-10-03] MEDS: buPROPion XL 150 MG TAB PO SCH (19:19)
[2017-10-04] MEDS: INSULIN LISPRO 100 UNIT/ML SC SCH ×2 (08:29→20:11)
[2017-10-04] MEDS: metFORMIN HCL 500 MG TAB PO SCH ×2 (09:12→16:56)
[2017-10-04] MEDS: PREGABALIN 50 MG CAP PO SCH ×2 (09:13→19:56)
[2017-10-04] MEDS: amLODIPine BESYLATE 5 MG TAB PO SCH (09:13)
[2017-10-04] MEDS: FERROUS SULFATE 325 MG TAB PO SCH (09:13)
[2017-10-04] MEDS: PANTOPRAZOLE SODIUM 40 MG TAB PO SCH (09:13)
[2017-10-04] MEDS: CHOLECALCIFEROL VIT D3 1,000 UNITS TAB PO SCH (09:15)
[2017-10-04] MEDS: LOSARTAN POTASSIUM 25 MG TAB PO SCH (09:15)
[2017-10-04] MEDS: INSULIN GLARGINE 100 UNITS/ML SYRINGE SC SCH ×2 (09:16→20:31)
[2017-10-04] MEDS: POLYETHYLENE GLYCOL 3350 17 GM PKT PO SCH (09:16)
--- NOTE | 2017-10-04 13:11 | SOAPPROG ---
SOAP Progress Note Assessment/Plan: Assessment: Per Dr. Triplett's note: Assessment: TRD (MDD vs Bipolar vs due to medical condition) IDDM, poor mobility due to deconditioning. depression, and DPN Plan: 10/04/17 13:04 1. Patient remains in bed most of the day. Does not participate in groups or milieu activities. 2. No falls reported last night. Patient slept 8 hrs, but reported sleep quality as "bad." 3. UA indicates patient has UTI, culture pending. Will ask hospitalist to give recommendations for treatment. 4. Next ECT on Friday. Subjective: Met with patient, reviewed chart and d/w staff. Patient is lying in bed awake. She got up and went to dining area for breakfast, but has been in bed the rest of the day. She says her appetite is "OK" and sleep is "no better" than at home. She denies any trouble falling asleep or staying asleep last night. She denies any falls. She tells MD her mood is "worse" in hospital b/c "there's nothing to do" and "I'm bored." When MD suggests patient could attend groups throughout the day and socialize with other patients, she just rolls her eyes. Earlier, RN had suggested patient attend groups, and patient replied, "I'm not here for groups." She rates her depression 5/10. MD ordered UA b/c RN reported malodorous urine. When MD asked, patient denied burning or painful urination or urgency. Objective: Vital Signs Temp Pulse Resp BP Pulse Ox 36.7 C 72 20 112/54 L 94 10/04/17 06:00 10/04/17 06:00 10/04/17 06:00 10/04/17 09:15 10/04/17 06:00 Laboratory Results 09/29/17 13:47 MSE: Affect: Flat Mood: "Bored" TP: Linear, goal-directed TC: No SI/HI, no AH /VH, no psychotic sxs Insight/Judgment: Poor - Time Spent With Patient Time Spent With Patient: 20" - Pending Discharge Pending Discharge Within 24 Hours: No Pending Discharge Within 48 Hours: No ICD10 Worksheet Patient Problems: Problems Problem Status Onset Bipolar affective disorder, depressed Acute Dehydration Acute Depression Acute Diabetes Acute
--- NOTE | 2017-10-04 13:59 | SOAPPROG ---
SOAP Progress Note Assessment/Plan: Assessment: Urinalysis consistent with urinary tract infection however she has no symptoms. This is likely asymptomatic bacteriuria. Await culture and sensitivities; monitor for any signs is symptoms of urinary tract infection. Would not advise treatment at present. 10/04/17 13:57 Subjective: Asked to see patient about malodorous urine. Nursing obtained a urinalysis. Patient denies fevers, chills, flank pain, dysuria, or urinary frequency. Objective: Vital Signs Temp Pulse Resp BP Pulse Ox 36.7 C 72 20 112/54 L 94 10/04/17 06:00 10/04/17 06:00 10/04/17 06:00 10/04/17 09:15 10/04/17 06:00 Laboratory Results 09/29/17 13:47 Physical Exam - Physical Exam General Appearance: WD/WN, alert, no apparent distress, obese Respiratory: No respiratory distress, No accessory muscle use Skin: normal color, warm/dry Neuro/Psych: alert, normal mood/affect ICD10 Worksheet Patient Problems: Problems Problem Status Onset Bipolar affective disorder, depressed Acute Dehydration Acute Depression Acute Diabetes Acute
[2017-10-04] MEDS: ATORVASTATIN CALCIUM 10 MG TAB PO SCH (19:54)
[2017-10-04] MEDS: buPROPion XL 150 MG TAB PO SCH (19:55)
[2017-10-04] MEDS: QUEtiapine FUMARATE 50 MG TAB PO SCH (19:56)
[2017-10-05] MEDS: POLYETHYLENE GLYCOL 3350 17 GM PKT PO SCH (08:59)
[2017-10-05] MEDS: amLODIPine BESYLATE 5 MG TAB PO SCH (08:59)
[2017-10-05] MEDS: CHOLECALCIFEROL VIT D3 1,000 UNITS TAB PO SCH (09:01)
[2017-10-05] MEDS: FERROUS SULFATE 325 MG TAB PO SCH (09:02)
[2017-10-05] MEDS: LOSARTAN POTASSIUM 25 MG TAB PO SCH (09:02)
[2017-10-05] MEDS: metFORMIN HCL 500 MG TAB PO SCH ×2 (09:02→17:27)
[2017-10-05] MEDS: PREGABALIN 50 MG CAP PO SCH ×2 (09:02→21:36)
[2017-10-05] MEDS: PANTOPRAZOLE SODIUM 40 MG TAB PO SCH (09:02)
[2017-10-05] MEDS: INSULIN GLARGINE 100 UNITS/ML SYRINGE SC SCH ×2 (09:07→21:36)
[2017-10-05] MEDS: INSULIN LISPRO 100 UNIT/ML SC SCH ×2 (09:18→21:48)
--- NOTE | 2017-10-05 11:51 | SOAPPROG ---
SOAP Progress Note Assessment/Plan: Assessment: Per Dr. Triplett's note: Assessment: TRD (MDD vs Bipolar vs due to medical condition) IDDM, poor mobility due to deconditioning. depression, and DPN Plan: 10/04/17 13:04 1. Patient remains in bed most of the day. Does not participate in groups or milieu activities. 2. No falls reported last night. Patient slept 8 hrs, but reported sleep quality as "bad." 3. UA indicates patient has UTI, culture pending. Will ask hospitalist to give recommendations for treatment. 4. Next ECT on Friday. 10/05/17 11:47 1. Appreciate hospitalist, Dr. Hart, seeing patient yesterday. His recommendation is as follows: "Urinalysis consistent with urinary tract infection however she has no symptoms. This is likely asymptomatic bacteriuria. Await culture and sensitivities; monitor for any signs is symptoms of urinary tract infection. Would not advise treatment at present." This AM patient continues to deny any physical complaints associated with infection. 2. No falls last night. Patient slept 9 hrs. She has not needed any increase in sleep meds. 3. FSBS was 66 this AM, but patient patient spends most of the day in bed, so no sxs of hypoglycemia (lightheadedness, dizziness) were apparent. 4. Next ECT on Friday. 5. Today is patient's birthday and she reports being in "good mood." Subjective: Met with patient, reviewed chart and d/w staff. Patient is lying in bed napping. She wakes up pretty quickly when MD enters her room. She denies any falls, says she slept "really well' last night, and has no physical complaints. She is asymptomatic for UTI, despite positive culture. Today is patient's 67th birthday. All the other patients on unit made birthday cards for patient during group last night and presented them to patient at breakfast this AM. Meals are the only time patient gets out of bed. Patient was "very pleased" and "happy" with her cards. She says she is in "good mood" today b/c of her peers thoughtfulness. Objective: Vital Signs Temp Pulse Resp BP Pulse Ox 36.6 C 61 14 126/60 H 93 10/05/17 06:44 10/05/17 06:44 10/05/17 06:44 10/05/17 09:02 10/05/17 06:44 Laboratory Results 09/29/17 13:47 MSE: Affect: Euthymic Mood: "Happy" TP: Linear TC: Denies any SI/HI, no AH/ VH Insight/Judgment: Fair - Time Spent With Patient Time Spent With Patient: 20" - Pending Discharge Pending Discharge Within 24 Hours: No Pending Discharge Within 48 Hours: No ICD10 Worksheet Patient Problems: Problems Problem Status Onset Bipolar affective disorder, depressed Acute Dehydration Acute Depression Acute Diabetes Acute
[2017-10-05] MEDS: ATORVASTATIN CALCIUM 10 MG TAB PO SCH (21:35)
[2017-10-05] MEDS: QUEtiapine FUMARATE 50 MG TAB PO SCH (21:35)
[2017-10-05] MEDS: buPROPion XL 150 MG TAB PO SCH (21:36)
[2017-10-06] MEDS ORDERED: LIDOCAINE 2% 5 ML SDV ID ONE (04:00)
[2017-10-06] MEDS ORDERED: CITRIC ACID/SODIUM CITRATE 30 ML UDCUP PO ONE (04:00)
[2017-10-06] MEDS ORDERED: ONDANSETRON DISINTEGRATING 4 MG TAB PO ONE (04:00)
[2017-10-06] MEDS ORDERED: NS 1,000 ML IV ONE (04:00)
[2017-10-06] MEDS: LOSARTAN POTASSIUM 25 MG TAB PO SCH (06:21)
[2017-10-06] MEDS: amLODIPine BESYLATE 5 MG TAB PO SCH (06:22)
[2017-10-06] MEDS ORDERED: MIDAZOLAM 2 MG/2 ML VIAL ONE (07:12)
[2017-10-06] MEDS ORDERED: ETOMIDATE 20 MG/10 ML VIAL ONE (07:13)
[2017-10-06] MEDS ORDERED: fentaNYL 100 MCG/2 ML INJ ONE (07:13)
[2017-10-06] MEDS ORDERED: GLYCOPYRROLATE 0.2 MG/1 ML VIAL ONE (07:13)
[2017-10-06] MEDS ORDERED: ONDANSETRON 4 MG/2 ML VIAL ONE (07:13)
[2017-10-06] MEDS ORDERED: ROCURONIUM 50 MG/5 ML VIAL ONE (07:13)
[2017-10-06] MEDS ORDERED: KETOROLAC 30 MG/1 ML SDV ONE (07:13)
[2017-10-06] MEDS ORDERED: SUCCINYLCHOLINE CHLORIDE 200 MG/10 ML VIAL ONE (07:13)
[2017-10-06] MEDS ORDERED: ONDANSETRON DISINTEGRATING 4 MG TAB ONE (07:43)
[2017-10-06] MEDS ORDERED: ONDANSETRON DISINTEGRATING 4 MG TAB PO PRN (08:09)
[2017-10-06] MEDS ORDERED: HYDROCODONE/APAP 5/325 TAB PO PRN (08:09)
[2017-10-06] MEDS ORDERED: PROMETHAZINE HCL 25 MG TAB PO PRN (08:09)
--- NOTE | 2017-10-06 08:25 | SOAPPROG ---
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 depression, and DPN Plan: 09/30/17 13:35 Pt interviewed in her room, while she was lying down, fully awake. She had just been out in day room area, per patient as MD commented on his wish that she be more in the milieu. She felt only moderate LOCKWOOD, no nausea with first ECT. [place] x1 with good effect. Pt felt no change in mood. Sleep was "poor" with d/c halcion, and start of seroquel 25 mg. Latuda remains at half her dose ( 40mg). SHe was found next to bed last evening. No injury sustained. Will increase seroquel to 50 mg and instructed pt to get up from bed more slowly. Will likely reduce Latuda to 20 mg soon. May need to try other sleep aids if seroquel 50 mg inadequate. Pt will likely dispo to Assisted Living post d/c. PT consult still pnd. 10/01/17 12:27 Pt underwent ECT #2 today. No clinical change. Will add torradol for LOCKWOOD. Will cont to taper latuda to 20 mg. Started Iron. Pt states had Colonoscopy 4 years ago and was told not needed to return for 10 years. Will check hemoccult test. hs-CRP high, not surprising in context fo DM. May speak to benefit of anti inflammatory for depression. MTHFR pnd too. Will try to cont seroquel 50 for sleep for a couple of more nights before re-thinking it. Vit E and/or Gingko biloba can be tried as outpt for TD 10/02/17 12:4 10/02 Pt in day room eating lunch, Had another witnessed near-fall. Will place on LOS. Will d/c latuda altogether to decrease med SE burden. Will cont seroquel 50 mg qhs as pt said "its working" indicating sleep is better. Will cont acute inpt ECT. MTHFR and hemoccult pnd. 10/02/17 12:47 10/03/17 14:59 Pt interviewed pre ECT. She reports sleeping better with seroquel 50, minus the latuda. Appetite not so great. Her QIDs remains 17 with a score of 1 on Q 12 ( indicating some SI). Mood still subjectively unchanged, poor. However, pt appears objectively a bit brighter in affect, even evincing a smile which I had yet to see. She was told of this encouraging observation. It is, of course, unclear whether objective brightening is function of ECT vs d/c of higher dose latuda with its presumed EPS/blunting. Appreciate CC note re attempts to find post d/c placement for pt in order to finish acute course in some structured settiing away from home. 10/06/17 08:17 Appreciate MD and RN/CC notes from Weekend. Appreciate w/u for UTI, being followed by Dr Hart. Pt herself is under the assumption that it is normal colonization. No symptoms c/w UTI. Mood-jeff, pt feels no subjective change but is clearly a bit brighter in affect, able to smile and tell wry joke. He QIDs score is actually increased, consistent with her self-report of no change for the better. Sleep is described as not good, after pt declared seroquel to be helpful late last week. Appetite fair, she is eating and drinking. MTHFR is negative. No over ill effect of fairly quick d/c off of Latuda. No falls in last few days. Hopefully the d/c of latuda and halcion has benefited her gait and alertness. Objective: Vital Signs Temp Pulse Resp BP Pulse Ox 36.3 C 68 14 137/65 H 90 L 10/06/17 06:00 10/06/17 06:00 10/06/17 06:00 10/06/17 06:22 10/06/17 06:00 Laboratory Results 09/29/17 13:47 ICD10 Worksheet Patient Problems: Problems Problem Status Onset Bipolar affective disorder, depressed Acute Dehydration Acute Depression Acute Diabetes Acute
[2017-10-06] MEDS: metFORMIN HCL 500 MG TAB PO SCH ×2 (09:54→18:07)
[2017-10-06] MEDS: CHOLECALCIFEROL VIT D3 2,000 UNITS TAB/CAP PO SCH (09:55)
[2017-10-06] MEDS: PANTOPRAZOLE SODIUM 40 MG TAB PO SCH (09:55)
[2017-10-06] MEDS: FERROUS SULFATE 325 MG TAB PO SCH (09:55)
[2017-10-06] MEDS: PREGABALIN 50 MG CAP PO SCH ×2 (09:56→20:37)
[2017-10-06] MEDS: POLYETHYLENE GLYCOL 3350 17 GM PKT PO SCH (09:56)
[2017-10-06] MEDS: INSULIN GLARGINE 100 UNITS/ML SYRINGE SC SCH ×2 (09:59→20:38)
[2017-10-06] MEDS: INSULIN LISPRO 100 UNIT/ML SC SCH ×2 (10:13→20:44)
[2017-10-06] MEDS: ATORVASTATIN CALCIUM 10 MG TAB PO SCH (20:37)
[2017-10-06] MEDS: buPROPion XL 150 MG TAB PO SCH (20:37)
[2017-10-06] MEDS: QUEtiapine FUMARATE 50 MG TAB PO SCH (20:37)
[2017-10-07] MEDS: POLYETHYLENE GLYCOL 3350 17 GM PKT PO SCH (09:05)
[2017-10-07] MEDS: CHOLECALCIFEROL VIT D3 2,000 UNITS TAB/CAP PO SCH (09:05)
[2017-10-07] MEDS: PREGABALIN 50 MG CAP PO SCH ×2 (09:05→20:08)
[2017-10-07] MEDS: PANTOPRAZOLE SODIUM 40 MG TAB PO SCH (09:05)
[2017-10-07] MEDS: FERROUS SULFATE 325 MG TAB PO SCH (09:05)
[2017-10-07] MEDS: metFORMIN HCL 500 MG TAB PO SCH ×2 (09:06→17:50)
[2017-10-07] MEDS: INSULIN GLARGINE 100 UNITS/ML SYRINGE SC SCH ×2 (09:06→20:08)
[2017-10-07] MEDS: LOSARTAN POTASSIUM 25 MG TAB PO SCH (09:06)
[2017-10-07] MEDS: INSULIN LISPRO 100 UNIT/ML SC SCH ×2 (09:22→20:07)
[2017-10-07] MEDS: amLODIPine BESYLATE 5 MG TAB PO SCH (09:22)
--- NOTE | 2017-10-07 11:45 | SOAPPROG ---
SOAP Progress Note Assessment/Plan: Assessment: Plan: 10/07/17 11:44 MDD: Remains depressed. Continue current treatment plan inc: ECT. Continue contact isolation for ESBL. Subjective: Pt seen, chart reviewed, case discussed with Dr. Triplett. Contact precautions for ESBL noted. Pt is in bed. Staff reports she sleeps a lot during the day. They were able to get the call button to work and put the rails up on her bed, eliminating the need for LOS. Dr Triplett reports objective improvement in mood. Pt continues to feel depressed. Objective: Vital Signs Temp Pulse Resp BP Pulse Ox 36.7 C 67 18 114/56 L 93 10/07/17 05:59 10/07/17 05:59 10/07/17 05:59 10/07/17 09:22 10/07/17 05:59 Microbiology 10/04/17 12:46 Urine Culture - Final Urine,Clean Catch Klebsiella Pneumoniae Esbl Laboratory Results 09/29/17 13:47 - Time Spent With Patient Time Spent With Patient: 15" ICD10 Worksheet Patient Problems: Problems Problem Status Onset Bipolar affective disorder, depressed Acute Dehydration Acute Depression Acute Diabetes Acute
[2017-10-07] MEDS: ATORVASTATIN CALCIUM 10 MG TAB PO SCH (20:08)
[2017-10-07] MEDS: QUEtiapine FUMARATE 50 MG TAB PO SCH (20:08)
[2017-10-07] MEDS: buPROPion XL 150 MG TAB PO SCH (20:08)
[2017-10-08] MEDS ORDERED: NS 1,000 ML IV ONE (04:00)
[2017-10-08] MEDS ORDERED: CITRIC ACID/SODIUM CITRATE 30 ML UDCUP PO ONE (04:00)
[2017-10-08] MEDS ORDERED: ONDANSETRON DISINTEGRATING 4 MG TAB PO ONE (04:00)
[2017-10-08] MEDS ORDERED: LIDOCAINE 2% 5 ML SDV ID ONE (04:00)
[2017-10-08] MEDS: amLODIPine BESYLATE 5 MG TAB PO SCH (08:32)
[2017-10-08] MEDS: PANTOPRAZOLE SODIUM 40 MG TAB PO SCH (08:32)
[2017-10-08] MEDS: metFORMIN HCL 500 MG TAB PO SCH ×2 (08:32→16:54)
[2017-10-08] MEDS: LOSARTAN POTASSIUM 25 MG TAB PO SCH (08:33)
[2017-10-08] MEDS ORDERED: MIDAZOLAM 2 MG/2 ML VIAL ONE (10:26)
[2017-10-08] MEDS ORDERED: ROCURONIUM 50 MG/5 ML VIAL ONE (10:27)
[2017-10-08] MEDS ORDERED: ETOMIDATE 20 MG/10 ML VIAL ONE (10:27)
[2017-10-08] MEDS ORDERED: GLYCOPYRROLATE 0.2 MG/1 ML VIAL ONE (10:27)
[2017-10-08] MEDS ORDERED: ONDANSETRON 4 MG/2 ML VIAL ONE (10:27)
[2017-10-08] MEDS ORDERED: KETOROLAC 30 MG/1 ML SDV ONE (10:27)
[2017-10-08] MEDS ORDERED: SUCCINYLCHOLINE CHLORIDE 200 MG/10 ML VIAL ONE (10:27)
[2017-10-08] MEDS ORDERED: fentaNYL 100 MCG/2 ML INJ ONE (10:27)
[2017-10-08] MEDS: INSULIN GLARGINE 100 UNITS/ML SYRINGE SC SCH ×2 (10:37→20:46)
[2017-10-08] MEDS: INSULIN LISPRO 100 UNIT/ML SC SCH ×2 (10:37→20:41)
[2017-10-08] MEDS: POLYETHYLENE GLYCOL 3350 17 GM PKT PO SCH (10:51)
[2017-10-08] MEDS: CHOLECALCIFEROL VIT D3 2,000 UNITS TAB/CAP PO SCH (10:51)
[2017-10-08] MEDS: FERROUS SULFATE 325 MG TAB PO SCH (10:51)
[2017-10-08] MEDS: PREGABALIN 50 MG CAP PO SCH ×2 (10:52→20:40)
[2017-10-08] MEDS ORDERED: ONDANSETRON DISINTEGRATING 4 MG TAB ONE (15:26)
--- NOTE | 2017-10-08 17:25 | SOAPPROG ---
SOAP Progress Note Assessment/Plan: Assessment: Plan: 10/07/17 11:44 MDD: Remains depressed. Continue current treatment plan inc: ECT. Continue contact isolation for ESBL. 10/08/17 17:24 MDD: Brighter today. CCM. Subjective: Pt seen, discussed with staff. Was pleasant and upbeat in ECT today. Understands need for contact precautions. Mood is subjectively depressed, but appears bright today. Underwent ECT without complication under contact precautions in the ECT area. Objective: Vital Signs Temp Pulse Resp BP Pulse Ox 36.6 C 78 14 182/78 H 97 10/08/17 17:05 10/08/17 17:05 10/08/17 17:05 10/08/17 17:05 10/08/17 17:05 Laboratory Results 09/29/17 13:47 MSE: Calm, coop. Affect is bright, stable, approp. Mood is "fine." TP linear. TC reveals no evidence of psychosis. - Time Spent With Patient Time Spent With Patient: 35" ICD10 Worksheet Patient Problems: Problems Problem Status Onset Bipolar affective disorder, depressed Acute Dehydration Acute Depression Acute Diabetes Acute
[2017-10-08] MEDS: QUEtiapine FUMARATE 50 MG TAB PO SCH (20:40)
[2017-10-08] MEDS: buPROPion XL 150 MG TAB PO SCH (20:40)
[2017-10-08] MEDS: ATORVASTATIN CALCIUM 10 MG TAB PO SCH (20:40)
[2017-10-09] MEDS: CHOLECALCIFEROL VIT D3 2,000 UNITS TAB/CAP PO SCH (08:40)
[2017-10-09] MEDS: POLYETHYLENE GLYCOL 3350 17 GM PKT PO SCH (08:40)
[2017-10-09] MEDS: PREGABALIN 50 MG CAP PO SCH ×2 (08:41→19:33)
[2017-10-09] MEDS: FERROUS SULFATE 325 MG TAB PO SCH (08:41)
[2017-10-09] MEDS: PANTOPRAZOLE SODIUM 40 MG TAB PO SCH (08:41)
[2017-10-09] MEDS: metFORMIN HCL 500 MG TAB PO SCH ×2 (08:41→18:14)
[2017-10-09] MEDS: amLODIPine BESYLATE 5 MG TAB PO SCH (08:51)
[2017-10-09] MEDS: LOSARTAN POTASSIUM 25 MG TAB PO SCH (08:51)
--- NOTE | 2017-10-09 10:13 | SOAPPROG ---
SOAP Progress Note Assessment/Plan: Assessment: Plan: 10/07/17 11:44 MDD: Remains depressed. Continue current treatment plan inc: ECT. Continue contact isolation for ESBL. 10/08/17 17:24 MDD: Brighter today. CCM. 10/09/17 10:13 MDD. Continued objective improvement. CCM. Subjective: Pt seen, discussed with staff. Alert and interactive this morning. States he is "disappointed" that she isn't feeling better at this point in treatment. I discussed with her that she is still relatively early in the process. She asked intelligent question about response rates to ECT, etc. Continues to spend most of her time in bed, though is getting up four times a day per behavioral plan. Remains on contact precautions. Objective: Vital Signs Temp Pulse Resp BP Pulse Ox 36.7 C 77 16 117/58 L 92 10/09/17 06:00 10/09/17 06:00 10/09/17 06:00 10/09/17 08:51 10/09/17 06:00 Laboratory Results 09/29/17 13:47 MSE: Calm, coop. Grooming is marginal. Affect is blunted, stable, approp. Mood is "down." TP linear. TC reveals no psychosis. Cognition is grossly intact; A&Ox4. - Time Spent With Patient Time Spent With Patient: 15" ICD10 Worksheet Patient Problems: Problems Problem Status Onset Bipolar affective disorder, depressed Acute Dehydration Acute Depression Acute Diabetes Acute
[2017-10-09] MEDS: INSULIN GLARGINE 100 UNITS/ML SYRINGE SC SCH ×2 (10:19→18:13)
[2017-10-09] MEDS: INSULIN LISPRO 100 UNIT/ML SC SCH ×2 (10:20→18:15)
[2017-10-09] MEDS: ATORVASTATIN CALCIUM 10 MG TAB PO SCH (20:59)
[2017-10-09] MEDS: QUEtiapine FUMARATE 50 MG TAB PO SCH (21:00)
[2017-10-09] MEDS: buPROPion XL 150 MG TAB PO SCH (21:00)
[2017-10-10] MEDS ORDERED: CITRIC ACID/SODIUM CITRATE 30 ML UDCUP PO ONE (04:00)
[2017-10-10] MEDS ORDERED: ONDANSETRON DISINTEGRATING 4 MG TAB PO ONE (04:00)
[2017-10-10] MEDS ORDERED: LIDOCAINE 2% 5 ML SDV ID ONE (04:00)
[2017-10-10] MEDS ORDERED: NS 1,000 ML IV ONE (04:00)
[2017-10-10] MEDS ORDERED: ROCURONIUM 50 MG/5 ML VIAL ONE (05:43)
[2017-10-10] MEDS ORDERED: fentaNYL 100 MCG/2 ML INJ ONE (05:43)
[2017-10-10] MEDS ORDERED: ONDANSETRON 4 MG/2 ML VIAL ONE (05:43)
[2017-10-10] MEDS ORDERED: KETOROLAC 30 MG/1 ML SDV ONE (05:43)
[2017-10-10] MEDS ORDERED: GLYCOPYRROLATE 0.2 MG/1 ML VIAL ONE (05:43)
[2017-10-10] MEDS ORDERED: ETOMIDATE 20 MG/10 ML VIAL ONE (05:43)
[2017-10-10] MEDS ORDERED: MIDAZOLAM 2 MG/2 ML VIAL ONE (05:43)
[2017-10-10] MEDS ORDERED: SUCCINYLCHOLINE CHLORIDE 200 MG/10 ML VIAL ONE (05:44)
[2017-10-10 08:11] LABS: PLATELET COUNT 393 10^3/uL (150-400)
[2017-10-10] MEDS: PANTOPRAZOLE SODIUM 40 MG TAB PO SCH (10:09)
[2017-10-10] MEDS: FERROUS SULFATE 325 MG TAB PO SCH (10:09)
[2017-10-10] MEDS: metFORMIN HCL 500 MG TAB PO SCH ×2 (10:09→17:20)
[2017-10-10] MEDS: CHOLECALCIFEROL VIT D3 2,000 UNITS TAB/CAP PO SCH (10:10)
[2017-10-10] MEDS: POLYETHYLENE GLYCOL 3350 17 GM PKT PO SCH (10:11)
[2017-10-10] MEDS: amLODIPine BESYLATE 5 MG TAB PO SCH (10:33)
[2017-10-10] MEDS: LOSARTAN POTASSIUM 25 MG TAB PO SCH (10:35)
[2017-10-10] MEDS: INSULIN GLARGINE 100 UNITS/ML SYRINGE SC SCH ×2 (10:45→20:46)
[2017-10-10] MEDS: INSULIN LISPRO 100 UNIT/ML SC SCH ×2 (10:46→20:48)
[2017-10-10] MEDS: PREGABALIN 50 MG CAP PO SCH ×2 (10:47→20:46)
[2017-10-10] MEDS ORDERED: ONDANSETRON DISINTEGRATING 4 MG TAB ONE (15:45)
[2017-10-10] MEDS ORDERED: HYDROCODONE/APAP 5/325 TAB PO PRN (16:09)
[2017-10-10] MEDS ORDERED: PROMETHAZINE HCL 25 MG TAB PO PRN (16:09)
[2017-10-10] MEDS ORDERED: ONDANSETRON DISINTEGRATING 4 MG TAB PO PRN (16:09)
[2017-10-10] MEDS ORDERED: BISACODYL 10 MG SUPP PR ONE (16:11)
--- NOTE | 2017-10-10 16:22 | SOAPPROG ---
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 depression, and DPN Plan: 09/30/17 13:35 Pt interviewed in her room, while she was lying down, fully awake. She had just been out in day room area, per patient as MD commented on his wish that she be more in the milieu. She felt only moderate LOCKWOOD, no nausea with first ECT. [place] x1 with good effect. Pt felt no change in mood. Sleep was "poor" with d/c halcion, and start of seroquel 25 mg. Latuda remains at half her dose ( 40mg). SHe was found next to bed last evening. No injury sustained. Will increase seroquel to 50 mg and instructed pt to get up from bed more slowly. Will likely reduce Latuda to 20 mg soon. May need to try other sleep aids if seroquel 50 mg inadequate. Pt will likely dispo to Assisted Living post d/c. PT consult still pnd. 10/01/17 12:27 Pt underwent ECT #2 today. No clinical change. Will add torradol for LOCKWOOD. Will cont to taper latuda to 20 mg. Started Iron. Pt states had Colonoscopy 4 years ago and was told not needed to return for 10 years. Will check hemoccult test. hs-CRP high, not surprising in context fo DM. May speak to benefit of anti inflammatory for depression. MTHFR pnd too. Will try to cont seroquel 50 for sleep for a couple of more nights before re-thinking it. Vit E and/or Gingko biloba can be tried as outpt for TD 10/02/17 12:4 10/02 Pt in day room eating lunch, Had another witnessed near-fall. Will place on LOS. Will d/c latuda altogether to decrease med SE burden. Will cont seroquel 50 mg qhs as pt said "its working" indicating sleep is better. Will cont acute inpt ECT. MTHFR and hemoccult pnd. 10/02/17 12:47 10/03/17 14:59 Pt interviewed pre ECT. She reports sleeping better with seroquel 50, minus the latuda. Appetite not so great. Her QIDs remains 17 with a score of 1 on Q 12 ( indicating some SI). Mood still subjectively unchanged, poor. However, pt appears objectively a bit brighter in affect, even evincing a smile which I had yet to see. She was told of this encouraging observation. It is, of course, unclear whether objective brightening is function of ECT vs d/c of higher dose latuda with its presumed EPS/blunting. Appreciate CC note re attempts to find post d/c placement for pt in order to finish acute course in some structured settiing away from home. 10/06/17 08:17 Appreciate MD and RN/CC notes from Weekend. Appreciate w/u for UTI, being followed by Dr Hart. Pt herself is under the assumption that it is normal colonization. No symptoms c/w UTI. Mood-jeff, pt feels no subjective change but is clearly a bit brighter in affect, able to smile and tell wry joke. He QIDs score is actually increased, consistent with her self-report of no change for the better. Sleep is described as not good, after pt declared seroquel to be helpful late last week. Appetite fair, she is eating and drinking. MTHFR is negative. No over ill effect of fairly quick d/c off of Latuda. No falls in last few days. Hopefully the d/c of latuda and halcion has benefited her gait and alertness. 10/10/17 16:16 Appreciate notes from over the last week from MDs, RN, and CC. Will call today with updates. Reviewed pts Urine C and S, with Dr Hart and ID specialist who simply provided general info as they have not seen the patient. THere is no indication to treat with antibiotic unless pt becomes symptomatic and the need for contact isolation is based on regulation for inpatient units and likely SNIF units. This colonization is not presently an issue for immunocompetent people in the community (such as ...I will reassure him abou that). Otherwise, pt has only appreciated modest change in mood with ECT. No falls. Overall, seems to have maintained an improvement in affect, albeit not quite back to her normal self. She remains anergic, isolative, impoverished, and mostly dysphoric in mood. Cont Acute Bilateral ECT into next week. CC to work on finding a Rehab unit for pt to transition through prior to going home. Will increase her remedies for constipation ( she feels it has been 3 days without a BM) Objective: Vital Signs Temp Pulse Resp BP Pulse Ox 36.6 C 81 14 102/56 L 92 10/10/17 06:00 10/10/17 06:00 10/10/17 06:00 10/10/17 10:35 10/09/17 06:00 Laboratory Results 10/10/17 06:00 ICD10 Worksheet Patient Problems: Problems Problem Status Onset Bipolar affective disorder, depressed Acute Dehydration Acute Depression Acute Diabetes Acute
[2017-10-10] MEDS: ATORVASTATIN CALCIUM 10 MG TAB PO SCH (20:45)
[2017-10-10] MEDS: buPROPion XL 150 MG TAB PO SCH (20:45)
[2017-10-10] MEDS: QUEtiapine FUMARATE 50 MG TAB PO SCH (20:46)
[2017-10-10] MEDS: DOCUSATE SODIUM 100 MG CAP PO SCH (20:46)
[2017-10-11] MEDS: INSULIN LISPRO 100 UNIT/ML SC SCH ×2 (08:16→19:58)
[2017-10-11] MEDS: POLYETHYLENE GLYCOL 3350 17 GM PKT PO SCH (08:49)
[2017-10-11] MEDS: DOCUSATE SODIUM 100 MG CAP PO SCH ×2 (08:49→19:45)
[2017-10-11] MEDS: CHOLECALCIFEROL VIT D3 2,000 UNITS TAB/CAP PO SCH (08:50)
[2017-10-11] MEDS: PANTOPRAZOLE SODIUM 40 MG TAB PO SCH (08:51)
[2017-10-11] MEDS: LOSARTAN POTASSIUM 25 MG TAB PO SCH (08:51)
[2017-10-11] MEDS: FERROUS SULFATE 325 MG TAB PO SCH (08:51)
[2017-10-11] MEDS: PREGABALIN 50 MG CAP PO SCH ×2 (08:51→19:46)
[2017-10-11] MEDS: amLODIPine BESYLATE 5 MG TAB PO SCH (08:52)
[2017-10-11] MEDS: PSYLLIUM METAMUCIL 1 PKT PO SCH (11:01)
[2017-10-11] MEDS: INSULIN GLARGINE 100 UNITS/ML SYRINGE SC SCH ×2 (11:32→19:46)
[2017-10-11] MEDS: metFORMIN HCL 500 MG TAB PO SCH ×2 (11:33→16:06)
[2017-10-11] MEDS: ATORVASTATIN CALCIUM 10 MG TAB PO SCH (19:45)
[2017-10-11] MEDS: buPROPion XL 150 MG TAB PO SCH (19:45)
[2017-10-11] MEDS: QUEtiapine FUMARATE 50 MG TAB PO SCH (19:46)
--- NOTE | 2017-10-11 19:52 | SOAPPROG ---
SOAP Progress Note Assessment/Plan: Assessment: 67yo CF who is [facility] with treatment resistant depression and multiple medical problems admitted to for ECT course. Deconditioned from depression, recently lengthy hosp stay for pneumonia and DM peripheral neuropathy, also with asymptomatic bacturia requiring contact precautions. Has walker, on fall precautions. 10/11/17 11:43 Per staff, slept 9.5hrs. no acute concerns. Pt resting in bed during interview. Denies any physical problems or medication side effects. Hard of hearing, good eye contact, speech nml rate/vol, no psychom agitation, affect restricted, reports mood is still depressed, perhaps a little improved overall, with no SI and no psychosis. noted slightly malodorous. has villaseñor in room from her . has had no falls, using walker as indicated. PLAN: continue ECT and current meds. cont fall precautions, walker consider behav plan to encourage being out of bed more during day and engaging in treatment on unit Objective: Vital Signs Temp Pulse Resp BP Pulse Ox 36.8 C 87 16 147/77 H 94 10/11/17 06:00 10/11/17 06:00 10/11/17 06:00 10/11/17 06:00 10/11/17 06:00 Laboratory Results 10/10/17 06:00 - Time Spent With Patient Time Spent With Patient: 10min - Pending Discharge Pending Discharge Within 24 Hours: No Pending Discharge Within 48 Hours: No ICD10 Worksheet Patient Problems: Problems Problem Status Onset Bipolar affective disorder, depressed Acute Dehydration Acute Depression Acute Diabetes Acute
[2017-10-12] MEDS: PANTOPRAZOLE SODIUM 40 MG TAB PO SCH (09:15)
[2017-10-12] MEDS: POLYETHYLENE GLYCOL 3350 17 GM PKT PO SCH (09:15)
[2017-10-12] MEDS: PREGABALIN 50 MG CAP PO SCH ×2 (09:15→20:55)
[2017-10-12] MEDS: CHOLECALCIFEROL VIT D3 2,000 UNITS TAB/CAP PO SCH (09:15)
[2017-10-12] MEDS: metFORMIN HCL 500 MG TAB PO SCH ×2 (09:16→17:10)
[2017-10-12] MEDS: amLODIPine BESYLATE 5 MG TAB PO SCH (09:16)
[2017-10-12] MEDS: DOCUSATE SODIUM 100 MG CAP PO SCH ×2 (09:17→20:54)
[2017-10-12] MEDS: INSULIN GLARGINE 100 UNITS/ML SYRINGE SC SCH ×2 (09:17→20:55)
[2017-10-12] MEDS: LOSARTAN POTASSIUM 25 MG TAB PO SCH (09:17)
[2017-10-12] MEDS: FERROUS SULFATE 325 MG TAB PO SCH (09:19)
[2017-10-12] MEDS: INSULIN LISPRO 100 UNIT/ML SC SCH ×2 (09:20→21:12)
[2017-10-12] MEDS: PSYLLIUM METAMUCIL 1 PKT PO SCH (09:21)
--- NOTE | 2017-10-12 13:11 | SOAPPROG ---
SOAP Progress Note Assessment/Plan: Assessment: 67yo CF who is [facility] with treatment resistant depression and multiple medical problems admitted to for ECT course. Deconditioned from depression, recently lengthy hosp stay for pneumonia and DM peripheral neuropathy, also with asymptomatic bacturia requiring contact precautions. Has walker, on fall precautions. 10/11/17 11:43 Per staff, slept 9.5hrs. no acute concerns. Pt resting in bed during interview. Denies any physical problems or medication side effects. Hard of hearing, good eye contact, speech nml rate/vol, no psychom agitation, affect restricted, reports mood is still depressed, perhaps a little improved overall, with no SI and no psychosis. noted slightly malodorous. has villaseñor in room from her . has had no falls, using walker as indicated. PLAN: continue ECT and current meds. cont fall precautions, walker 10/12/17 13:05 per staff, slept 11hrs. Has been out in milieu for meals and glc checks. Otherwise isolative in room. not attending groups. Asked pt about reported 11hr sleep. Reports often just resting in bed, thinks perhaps staff think she's asleep and that's why 11hr sleep being reported, doesn 't feel she's sleeping that much. Has difficulty falling asleep at night. Admits doesn't attend groups, "I'm not here to go to groups"..."I'm not going to go to groups and share my problems" and doesn't want to hear others' problems. Informed some groups such as art and meditation would possibly be enjoyable. Pt refused to consider. PT saw patient today, recommending ambulating QID in halls, and to be up for meals. PT noting no problems with ambulation, rather motivation/depression. MSE: in dining room, sitting in chair, nml psychom activity, nml speech rate/ vol. good eye contact. mood "seems to be going down, I don't think the ECT is working, I think it's because he took me off Latuda". Affect constricted but appropriate to conversation. denied any SI or any AH/VH, and did not appear responding to int stim. Thoughts linear and reality-based, with somewhat abrupt responses. i/j both seem fair. cognition conversationally intact. PLAN: -change Wellbutrin to daily at noon from [facility], so not contributing to difficulty falling asleep as she reported -continue other meds/ECT as ordered. -consider behav plan as indicated Objective: Vital Signs Temp Pulse Resp BP Pulse Ox 36.6 C 80 12 131/76 H 94 10/12/17 06:00 10/12/17 06:00 10/12/17 06:00 10/12/17 06:00 10/12/17 06:00 Laboratory Results 10/10/17 06:00 - Time Spent With Patient Time Spent With Patient: 20min - Pending Discharge Pending Discharge Within 24 Hours: No Pending Discharge Within 48 Hours: No ICD10 Worksheet Patient Problems: Problems Problem Status Onset Bipolar affective disorder, depressed Acute Dehydration Acute Depression Acute Diabetes Acute
[2017-10-12] MEDS: buPROPion XL 150 MG TAB PO SCH (13:47)
[2017-10-12] MEDS: ATORVASTATIN CALCIUM 10 MG TAB PO SCH (20:54)
[2017-10-12] MEDS: QUEtiapine FUMARATE 50 MG TAB PO SCH (20:55)
[2017-10-13] MEDS ORDERED: CITRIC ACID/SODIUM CITRATE 30 ML UDCUP PO ONE (04:00)
[2017-10-13] MEDS ORDERED: ONDANSETRON DISINTEGRATING 4 MG TAB PO ONE (04:00)
[2017-10-13] MEDS ORDERED: NS 1,000 ML IV ONE (04:00)
[2017-10-13] MEDS ORDERED: LIDOCAINE 2% 5 ML SDV ID ONE (04:00)
[2017-10-13] MEDS: metFORMIN HCL 500 MG TAB PO SCH ×2 (05:56→17:31)
[2017-10-13] MEDS: PANTOPRAZOLE SODIUM 40 MG TAB PO SCH ×2 (05:56→06:06)
[2017-10-13] MEDS: LOSARTAN POTASSIUM 25 MG TAB PO SCH (05:57)
[2017-10-13] MEDS: amLODIPine BESYLATE 5 MG TAB PO SCH (06:05)
[2017-10-13] MEDS ORDERED: ONDANSETRON DISINTEGRATING 4 MG TAB ONE (07:17)
[2017-10-13] MEDS ORDERED: MIDAZOLAM 2 MG/2 ML VIAL ONE (07:18)
[2017-10-13] MEDS ORDERED: GLYCOPYRROLATE 0.2 MG/1 ML VIAL ONE (07:18)
[2017-10-13] MEDS ORDERED: ONDANSETRON 4 MG/2 ML VIAL ONE (07:18)
[2017-10-13] MEDS ORDERED: KETOROLAC 30 MG/1 ML SDV ONE (07:18)
[2017-10-13] MEDS ORDERED: fentaNYL 100 MCG/2 ML INJ ONE (07:18)
[2017-10-13] MEDS ORDERED: SUCCINYLCHOLINE CHLORIDE 200 MG/10 ML VIAL ONE (07:19)
[2017-10-13] MEDS ORDERED: ETOMIDATE 20 MG/10 ML VIAL ONE (07:19)
[2017-10-13] MEDS ORDERED: ROCURONIUM 50 MG/5 ML VIAL ONE (07:19)
[2017-10-13] MEDS: DOCUSATE SODIUM 100 MG CAP PO SCH ×2 (10:20→19:57)
[2017-10-13] MEDS: CHOLECALCIFEROL VIT D3 2,000 UNITS TAB/CAP PO SCH (10:20)
[2017-10-13] MEDS: PREGABALIN 50 MG CAP PO SCH ×2 (10:21→19:57)
[2017-10-13] MEDS: FERROUS SULFATE 325 MG TAB PO SCH (10:21)
[2017-10-13] MEDS: buPROPion XL 150 MG TAB PO SCH (10:22)
[2017-10-13] MEDS: INSULIN GLARGINE 100 UNITS/ML SYRINGE SC SCH ×2 (10:22→19:58)
[2017-10-13] MEDS: INSULIN LISPRO 100 UNIT/ML SC SCH ×2 (10:24→20:04)
[2017-10-13] MEDS: POLYETHYLENE GLYCOL 3350 17 GM PKT PO SCH (10:25)
[2017-10-13] MEDS: PSYLLIUM METAMUCIL 1 PKT PO SCH (10:29)
[2017-10-13] MEDS ORDERED: HYDROCODONE/APAP 5/325 TAB PO PRN (11:42)
[2017-10-13] MEDS ORDERED: PROMETHAZINE HCL 25 MG TAB PO PRN (11:42)
[2017-10-13] MEDS ORDERED: buPROPion XL 150 MG TAB PO SCH (12:00)
--- NOTE | 2017-10-13 12:11 | SOAPPROG ---
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 depression, and DPN Plan: 09/30/17 13:35 Pt interviewed in her room, while she was lying down, fully awake. She had just been out in day room area, per patient as MD commented on his wish that she be more in the milieu. She felt only moderate LOCKWOOD, no nausea with first ECT. [place] x1 with good effect. Pt felt no change in mood. Sleep was "poor" with d/c halcion, and start of seroquel 25 mg. Latuda remains at half her dose ( 40mg). SHe was found next to bed last evening. No injury sustained. Will increase seroquel to 50 mg and instructed pt to get up from bed more slowly. Will likely reduce Latuda to 20 mg soon. May need to try other sleep aids if seroquel 50 mg inadequate. Pt will likely dispo to Assisted Living post d/c. PT consult still pnd. 10/01/17 12:27 Pt underwent ECT #2 today. No clinical change. Will add torradol for LOCKWOOD. Will cont to taper latuda to 20 mg. Started Iron. Pt states had Colonoscopy 4 years ago and was told not needed to return for 10 years. Will check hemoccult test. hs-CRP high, not surprising in context fo DM. May speak to benefit of anti inflammatory for depression. MTHFR pnd too. Will try to cont seroquel 50 for sleep for a couple of more nights before re-thinking it. Vit E and/or Gingko biloba can be tried as outpt for TD 10/02/17 12:4 10/02 Pt in day room eating lunch, Had another witnessed near-fall. Will place on LOS. Will d/c latuda altogether to decrease med SE burden. Will cont seroquel 50 mg qhs as pt said "its working" indicating sleep is better. Will cont acute inpt ECT. MTHFR and hemoccult pnd. 10/02/17 12:47 10/03/17 14:59 Pt interviewed pre ECT. She reports sleeping better with seroquel 50, minus the latuda. Appetite not so great. Her QIDs remains 17 with a score of 1 on Q 12 ( indicating some SI). Mood still subjectively unchanged, poor. However, pt appears objectively a bit brighter in affect, even evincing a smile which I had yet to see. She was told of this encouraging observation. It is, of course, unclear whether objective brightening is function of ECT vs d/c of higher dose latuda with its presumed EPS/blunting. Appreciate CC note re attempts to find post d/c placement for pt in order to finish acute course in some structured settiing away from home. 10/06/17 08:17 Appreciate MD and RN/CC notes from Weekend. Appreciate w/u for UTI, being followed by Dr Hart. Pt herself is under the assumption that it is normal colonization. No symptoms c/w UTI. Mood-jeff, pt feels no subjective change but is clearly a bit brighter in affect, able to smile and tell wry joke. He QIDs score is actually increased, consistent with her self-report of no change for the better. Sleep is described as not good, after pt declared seroquel to be helpful late last week. Appetite fair, she is eating and drinking. MTHFR is negative. No over ill effect of fairly quick d/c off of Latuda. No falls in last few days. Hopefully the d/c of latuda and halcion has benefited her gait and alertness. 10/10/17 16:16 Appreciate notes from over the last week from MDs, RN, and CC. Will call today with updates. Reviewed pts Urine C and S, with Dr Hart and ID specialist who simply provided general info as they have not seen the patient. THere is no indication to treat with antibiotic unless pt becomes symptomatic and the need for contact isolation is based on regulation for inpatient units and likely SNIF units. This colonization is not presently an issue for immunocompetent people in the community (such as ...I will reassure him abou that). Otherwise, pt has only appreciated modest change in mood with ECT. No falls. Overall, seems to have maintained an improvement in affect, albeit not quite back to her normal self. She remains anergic, isolative, impoverished, and mostly dysphoric in mood. Cont Acute Bilateral ECT into next week. CC to work on finding a Rehab unit for pt to transition through prior to going home. Will increase her remedies for constipation ( she feels it has been 3 days without a BM) 10/13/17 11:59 Pt still feels no subjective improvement. Today was ECT #7. She does report sleep as being good and appetite as fair. She lacks motivation, initiative and will. Denies active SI, but has passive SI. Will add theophyline am of ECT as motor seizure is short and will hold Lyrica x24 hours prior to each treatment. I further discussed her asymptomatic bacturia with Lilli Pedraza and Yobani. I am concerned that it is POSSIBLE that her depression and "sickness behavior" MIGHT be contributed to by this bacteriuria. She has elevated hs-CRP, had elevated white count, and WBCs in urine, all indicating some systemic inflammation which MAY be in part of function of her "asymptomatic" infection. I also reviewed literature on asymtomatic bacteriuria in diabetics: apparently a subset of those patients DO end up with clear signs of infection or urosepsis. Hence, it is NOT a risk-free condition for her to remain untreated. I am aware, of course, of the risks of treating with antibiotics, but it is not , in my opinion, a cut and dry, unambiguous decision. I will discuss further with Dr Hart. The more ECT is done with no clear benefit, the more inclined I might be to have her bacteriuria treated as this ECT non-response may further increase the likelihood of an "organic" contributant to her depression in the form of a UTI. Objective: Vital Signs Temp Pulse Resp BP Pulse Ox 36.6 C 66 22 H 130/54 H 94 10/13/17 09:36 10/13/17 09:36 10/13/17 09:36 10/13/17 09:36 10/13/17 09:36 Laboratory Results 10/10/17 06:00 ICD10 Worksheet Patient Problems: Problems Problem Status Onset Bipolar affective disorder, depressed Acute Dehydration Acute Depression Acute Diabetes Acute
[2017-10-13] MEDS: QUEtiapine FUMARATE 50 MG TAB PO SCH (19:57)
[2017-10-13] MEDS: ATORVASTATIN CALCIUM 10 MG TAB PO SCH (19:57)
[2017-10-14] MEDS: POLYETHYLENE GLYCOL 3350 17 GM PKT PO SCH (08:50)
[2017-10-14] MEDS: amLODIPine BESYLATE 5 MG TAB PO SCH (08:53)
[2017-10-14] MEDS: CHOLECALCIFEROL VIT D3 2,000 UNITS TAB/CAP PO SCH (08:53)
[2017-10-14] MEDS: buPROPion XL 150 MG TAB PO SCH (08:54)
[2017-10-14] MEDS: metFORMIN HCL 500 MG TAB PO SCH ×2 (08:55→17:48)
[2017-10-14] MEDS: PREGABALIN 50 MG CAP PO SCH (08:55)
[2017-10-14] MEDS: FERROUS SULFATE 325 MG TAB PO SCH (08:55)
[2017-10-14] MEDS: LOSARTAN POTASSIUM 25 MG TAB PO SCH (08:55)
[2017-10-14] MEDS: DOCUSATE SODIUM 100 MG CAP PO SCH ×2 (08:56→19:57)
[2017-10-14] MEDS: PANTOPRAZOLE SODIUM 40 MG TAB PO SCH (08:57)
[2017-10-14] MEDS: INSULIN LISPRO 100 UNIT/ML SC SCH ×2 (09:36→20:05)
[2017-10-14] MEDS: INSULIN GLARGINE 100 UNITS/ML SYRINGE SC SCH (09:36)
[2017-10-14] MEDS: PSYLLIUM METAMUCIL 1 PKT PO SCH ×2 (09:36→09:44)
--- NOTE | 2017-10-14 11:04 | SOAPPROG ---
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 depression, and DPN Plan: 09/30/17 13:35 Pt interviewed in her room, while she was lying down, fully awake. She had just been out in day room area, per patient as MD commented on his wish that she be more in the milieu. She felt only moderate LOCKWOOD, no nausea with first ECT. [place] x1 with good effect. Pt felt no change in mood. Sleep was "poor" with d/c halcion, and start of seroquel 25 mg. Latuda remains at half her dose ( 40mg). SHe was found next to bed last evening. No injury sustained. Will increase seroquel to 50 mg and instructed pt to get up from bed more slowly. Will likely reduce Latuda to 20 mg soon. May need to try other sleep aids if seroquel 50 mg inadequate. Pt will likely dispo to Assisted Living post d/c. PT consult still pnd. 10/01/17 12:27 Pt underwent ECT #2 today. No clinical change. Will add torradol for LOCKWOOD. Will cont to taper latuda to 20 mg. Started Iron. Pt states had Colonoscopy 4 years ago and was told not needed to return for 10 years. Will check hemoccult test. hs-CRP high, not surprising in context fo DM. May speak to benefit of anti inflammatory for depression. MTHFR pnd too. Will try to cont seroquel 50 for sleep for a couple of more nights before re-thinking it. Vit E and/or Gingko biloba can be tried as outpt for TD 10/02/17 12:4 10/02 Pt in day room eating lunch, Had another witnessed near-fall. Will place on LOS. Will d/c latuda altogether to decrease med SE burden. Will cont seroquel 50 mg qhs as pt said "its working" indicating sleep is better. Will cont acute inpt ECT. MTHFR and hemoccult pnd. 10/02/17 12:47 10/03/17 14:59 Pt interviewed pre ECT. She reports sleeping better with seroquel 50, minus the latuda. Appetite not so great. Her QIDs remains 17 with a score of 1 on Q 12 ( indicating some SI). Mood still subjectively unchanged, poor. However, pt appears objectively a bit brighter in affect, even evincing a smile which I had yet to see. She was told of this encouraging observation. It is, of course, unclear whether objective brightening is function of ECT vs d/c of higher dose latuda with its presumed EPS/blunting. Appreciate CC note re attempts to find post d/c placement for pt in order to finish acute course in some structured settiing away from home. 10/06/17 08:17 Appreciate MD and RN/CC notes from Weekend. Appreciate w/u for UTI, being followed by Dr Hart. Pt herself is under the assumption that it is normal colonization. No symptoms c/w UTI. Mood-jeff, pt feels no subjective change but is clearly a bit brighter in affect, able to smile and tell wry joke. He QIDs score is actually increased, consistent with her self-report of no change for the better. Sleep is described as not good, after pt declared seroquel to be helpful late last week. Appetite fair, she is eating and drinking. MTHFR is negative. No over ill effect of fairly quick d/c off of Latuda. No falls in last few days. Hopefully the d/c of latuda and halcion has benefited her gait and alertness. 10/10/17 16:16 Appreciate notes from over the last week from MDs, RN, and CC. Will call today with updates. Reviewed pts Urine C and S, with Dr Hart and ID specialist who simply provided general info as they have not seen the patient. THere is no indication to treat with antibiotic unless pt becomes symptomatic and the need for contact isolation is based on regulation for inpatient units and likely SNIF units. This colonization is not presently an issue for immunocompetent people in the community (such as ...I will reassure him abou that). Otherwise, pt has only appreciated modest change in mood with ECT. No falls. Overall, seems to have maintained an improvement in affect, albeit not quite back to her normal self. She remains anergic, isolative, impoverished, and mostly dysphoric in mood. Cont Acute Bilateral ECT into next week. CC to work on finding a Rehab unit for pt to transition through prior to going home. Will increase her remedies for constipation ( she feels it has been 3 days without a BM) 10/13/17 11:59 Pt still feels no subjective improvement. Today was ECT #7. She does report sleep as being good and appetite as fair. She lacks motivation, initiative and will. Denies active SI, but has passive SI. Will add theophyline am of ECT as motor seizure is short and will hold Lyrica x24 hours prior to each treatment. I further discussed her asymptomatic bacturia with Lilli Pedraza and Yobani. I am concerned that it is POSSIBLE that her depression and "sickness behavior" MIGHT be contributed to by this bacteriuria. She has elevated hs-CRP, had elevated white count, and WBCs in urine, all indicating some systemic inflammation which MAY be in part of function of her "asymptomatic" infection. I also reviewed literature on asymtomatic bacteriuria in diabetics: apparently a subset of those patients DO end up with clear signs of infection or urosepsis. Hence, it is NOT a risk-free condition for her to remain untreated. I am aware, of course, of the risks of treating with antibiotics, but it is not , in my opinion, a cut and dry, unambiguous decision. I will discuss further with Dr Hart. The more ECT is done with no clear benefit, the more inclined I might be to have her bacteriuria treated as this ECT non-response may further increase the likelihood of an "organic" contributant to her depression in the form of a UTI. 10/14/17 10:53 Pt in bed mid morning, eyes closed, not sleeping. Subjectively, still reports no change with ECT. I am concerned that her ongoing apathy, abulia, "depressed " mood, anergia, amotivation and anhedonia MAY represent a mental status change (hypoactive delirium) that may have preceded ECT rather than be caused by it. However, one would expect ECT to worsen that and one can approach that possibility with either a short "pause" (ie, 5-7 days) in treatment OR continuing at a less frequent (2x/week) schedule. I spoke with Dr Hart about treating the presumed "asymptomatic" bacteriuria as we have more evidence--after 7 ECTs--that her "depression" may have an "organic' component and may be, in part, associated with urosepsis that would then justify antibiotic treatment. Pt has given me I/C to start antibiotic, understanding its potential SE/Risks (Gi upset, C difficile, allergic response) but understanding its potential benefit of alleviating her "depression" with its concomitant morbidity or mortality (from inanition, decreased mobility leading to further infection). he will also help address her insulin requirements and place her on better sliding scale parameters. Per RN, her FSs have never led to a humalog dosing, and at times, like this am, she is potentially too low Objective: Vital Signs Temp Pulse Resp BP Pulse Ox 36.7 C 66 16 121/63 H 95 10/13/17 13:30 10/14/17 06:00 10/14/17 06:00 10/14/17 08:55 10/14/17 06:00 Laboratory Results 10/10/17 06:00 ICD10 Worksheet Patient Problems: Problems Problem Status Onset Bipolar affective disorder, depressed Acute Dehydration Acute Depression Acute Diabetes Acute
--- NOTE | 2017-10-14 15:37 | SOAPPROG ---
SOAP Progress Note Assessment/Plan: Assessment: Urinalysis consistent with urinary tract infection however she has no symptoms. This is likely asymptomatic bacteriuria. * Urine culture grew ESBL Klebsiella. * Discussed with psychiatrist Dr. Bobo: She has otherwise been refractory to ECT treatments. * Trial of antibiotics to treat bacteriuria, in case it is contributing to her psychiatric symptoms. If no improvement in several days advise discontinuation of antibiotics. 10/14/17 15:35 Subjective: Follow-up on back to urea and on blood sugar management. She denies fevers, chills, flank pain, urinary frequency, dysuria. Objective: Vital Signs Temp Pulse Resp BP Pulse Ox 36.7 C 66 16 121/63 H 95 10/13/17 13:30 10/14/17 06:00 10/14/17 06:00 10/14/17 08:55 10/14/17 06:00 Laboratory Results 10/10/17 06:00 Physical Exam - Physical Exam General Appearance: WD/WN, alert, no apparent distress ICD10 Worksheet Patient Problems: Problems Problem Status Onset Bipolar affective disorder, depressed Acute Dehydration Acute Depression Acute Diabetes Acute
[2017-10-14] MEDS: ATORVASTATIN CALCIUM 10 MG TAB PO SCH (19:57)
[2017-10-14] MEDS: SULFAMETHOX/TMP 800/160 MG 1 TAB PO SCH (19:57)
[2017-10-14] MEDS: QUEtiapine FUMARATE 50 MG TAB PO SCH (19:57)
[2017-10-14] MEDS ORDERED: INSULIN GLARGINE 100 UNITS/ML SYRINGE SC ONE (21:00)
[2017-10-15] MEDS ORDERED: ONDANSETRON DISINTEGRATING 4 MG TAB PO ONE (04:00)
[2017-10-15] MEDS ORDERED: CITRIC ACID/SODIUM CITRATE 30 ML UDCUP PO ONE (04:00)
[2017-10-15] MEDS ORDERED: LIDOCAINE 2% 5 ML SDV ID ONE (04:00)
[2017-10-15] MEDS ORDERED: NS 1,000 ML IV ONE (04:00)
[2017-10-15] MEDS ORDERED: MIDAZOLAM 2 MG/2 ML VIAL ONE (05:44)
[2017-10-15] MEDS ORDERED: fentaNYL 100 MCG/2 ML INJ ONE (05:44)
[2017-10-15] MEDS ORDERED: GLYCOPYRROLATE 0.2 MG/1 ML VIAL ONE (05:45)
[2017-10-15] MEDS ORDERED: ROCURONIUM 50 MG/5 ML VIAL ONE (05:45)
[2017-10-15] MEDS ORDERED: SUCCINYLCHOLINE CHLORIDE 200 MG/10 ML VIAL ONE (05:45)
[2017-10-15] MEDS ORDERED: ETOMIDATE 20 MG/10 ML VIAL ONE (05:45)
[2017-10-15] MEDS ORDERED: ONDANSETRON 4 MG/2 ML VIAL ONE (05:45)
[2017-10-15] MEDS ORDERED: KETOROLAC 30 MG/1 ML SDV ONE (05:45)
[2017-10-15] MEDS ORDERED: THEOPHYLLINE ER/SR 300 MG TAB (THEO-DUR) PO SCH (08:00)
[2017-10-15] MEDS ORDERED: THEOPHYLLINE 200 MG PO SCH (08:00)
[2017-10-15] MEDS ORDERED: [UNRECOGNIZED DRUG - OTHER] PO SCH (08:00)
[2017-10-15] MEDS: INSULIN LISPRO 100 UNIT/ML SC SCH ×2 (08:40→19:57)
[2017-10-15] MEDS: POLYETHYLENE GLYCOL 3350 17 GM PKT PO SCH (08:41)
[2017-10-15] MEDS: PSYLLIUM METAMUCIL 1 PKT PO SCH (08:42)
[2017-10-15] MEDS: DOCUSATE SODIUM 100 MG CAP PO SCH ×2 (08:44→19:56)
[2017-10-15] MEDS: buPROPion XL 150 MG TAB PO SCH (09:10)
[2017-10-15] MEDS: amLODIPine BESYLATE 5 MG TAB PO SCH (09:10)
[2017-10-15] MEDS: SULFAMETHOX/TMP 800/160 MG 1 TAB PO SCH ×2 (09:10→20:03)
[2017-10-15] MEDS: metFORMIN HCL 500 MG TAB PO SCH ×2 (09:11→17:44)
[2017-10-15] MEDS: CHOLECALCIFEROL VIT D3 2,000 UNITS TAB/CAP PO SCH (09:11)
[2017-10-15] MEDS: PANTOPRAZOLE SODIUM 40 MG TAB PO SCH (09:11)
[2017-10-15] MEDS: FERROUS SULFATE 325 MG TAB PO SCH (09:11)
[2017-10-15] MEDS: THEOPHYLLINE ER/SR 300 MG TAB (THEO-DUR) PO SCH (14:36)
[2017-10-15] MEDS ORDERED: ONDANSETRON DISINTEGRATING 4 MG TAB ONE (15:17)
[2017-10-15] MEDS ORDERED: PROMETHAZINE HCL 25 MG TAB PO PRN (16:17)
[2017-10-15] MEDS ORDERED: HYDROCODONE/APAP 5/325 TAB PO PRN (16:17)
--- NOTE | 2017-10-15 16:26 | SOAPPROG ---
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 depression, and DPN Plan: 09/30/17 13:35 Pt interviewed in her room, while she was lying down, fully awake. She had just been out in day room area, per patient as MD commented on his wish that she be more in the milieu. She felt only moderate LOCKWOOD, no nausea with first ECT. [place] x1 with good effect. Pt felt no change in mood. Sleep was "poor" with d/c halcion, and start of seroquel 25 mg. Latuda remains at half her dose ( 40mg). SHe was found next to bed last evening. No injury sustained. Will increase seroquel to 50 mg and instructed pt to get up from bed more slowly. Will likely reduce Latuda to 20 mg soon. May need to try other sleep aids if seroquel 50 mg inadequate. Pt will likely dispo to Assisted Living post d/c. PT consult still pnd. 10/01/17 12:27 Pt underwent ECT #2 today. No clinical change. Will add torradol for LOCKWOOD. Will cont to taper latuda to 20 mg. Started Iron. Pt states had Colonoscopy 4 years ago and was told not needed to return for 10 years. Will check hemoccult test. hs-CRP high, not surprising in context fo DM. May speak to benefit of anti inflammatory for depression. MTHFR pnd too. Will try to cont seroquel 50 for sleep for a couple of more nights before re-thinking it. Vit E and/or Gingko biloba can be tried as outpt for TD 10/02/17 12:4 10/02 Pt in day room eating lunch, Had another witnessed near-fall. Will place on LOS. Will d/c latuda altogether to decrease med SE burden. Will cont seroquel 50 mg qhs as pt said "its working" indicating sleep is better. Will cont acute inpt ECT. MTHFR and hemoccult pnd. 10/02/17 12:47 10/03/17 14:59 Pt interviewed pre ECT. She reports sleeping better with seroquel 50, minus the latuda. Appetite not so great. Her QIDs remains 17 with a score of 1 on Q 12 ( indicating some SI). Mood still subjectively unchanged, poor. However, pt appears objectively a bit brighter in affect, even evincing a smile which I had yet to see. She was told of this encouraging observation. It is, of course, unclear whether objective brightening is function of ECT vs d/c of higher dose latuda with its presumed EPS/blunting. Appreciate CC note re attempts to find post d/c placement for pt in order to finish acute course in some structured settiing away from home. 10/06/17 08:17 Appreciate MD and RN/CC notes from Weekend. Appreciate w/u for UTI, being followed by Dr Hart. Pt herself is under the assumption that it is normal colonization. No symptoms c/w UTI. Mood-jeff, pt feels no subjective change but is clearly a bit brighter in affect, able to smile and tell wry joke. He QIDs score is actually increased, consistent with her self-report of no change for the better. Sleep is described as not good, after pt declared seroquel to be helpful late last week. Appetite fair, she is eating and drinking. MTHFR is negative. No over ill effect of fairly quick d/c off of Latuda. No falls in last few days. Hopefully the d/c of latuda and halcion has benefited her gait and alertness. 10/10/17 16:16 Appreciate notes from over the last week from MDs, RN, and CC. Will call today with updates. Reviewed pts Urine C and S, with Dr Hart and ID specialist who simply provided general info as they have not seen the patient. THere is no indication to treat with antibiotic unless pt becomes symptomatic and the need for contact isolation is based on regulation for inpatient units and likely SNIF units. This colonization is not presently an issue for immunocompetent people in the community (such as ...I will reassure him abou that). Otherwise, pt has only appreciated modest change in mood with ECT. No falls. Overall, seems to have maintained an improvement in affect, albeit not quite back to her normal self. She remains anergic, isolative, impoverished, and mostly dysphoric in mood. Cont Acute Bilateral ECT into next week. CC to work on finding a Rehab unit for pt to transition through prior to going home. Will increase her remedies for constipation ( she feels it has been 3 days without a BM) 10/13/17 11:59 Pt still feels no subjective improvement. Today was ECT #7. She does report sleep as being good and appetite as fair. She lacks motivation, initiative and will. Denies active SI, but has passive SI. Will add theophyline am of ECT as motor seizure is short and will hold Lyrica x24 hours prior to each treatment. I further discussed her asymptomatic bacturia with Lilli Pedraza and Yobani. I am concerned that it is POSSIBLE that her depression and "sickness behavior" MIGHT be contributed to by this bacteriuria. She has elevated hs-CRP, had elevated white count, and WBCs in urine, all indicating some systemic inflammation which MAY be in part of function of her "asymptomatic" infection. I also reviewed literature on asymtomatic bacteriuria in diabetics: apparently a subset of those patients DO end up with clear signs of infection or urosepsis. Hence, it is NOT a risk-free condition for her to remain untreated. I am aware, of course, of the risks of treating with antibiotics, but it is not , in my opinion, a cut and dry, unambiguous decision. I will discuss further with Dr Hart. The more ECT is done with no clear benefit, the more inclined I might be to have her bacteriuria treated as this ECT non-response may further increase the likelihood of an "organic" contributant to her depression in the form of a UTI. 10/14/17 10:53 Pt in bed mid morning, eyes closed, not sleeping. Subjectively, still reports no change with ECT. I am concerned that her ongoing apathy, abulia, "depressed " mood, anergia, amotivation and anhedonia MAY represent a mental status change (hypoactive delirium) that may have preceded ECT rather than be caused by it. However, one would expect ECT to worsen that and one can approach that possibility with either a short "pause" (ie, 5-7 days) in treatment OR continuing at a less frequent (2x/week) schedule. I spoke with Dr Hart about treating the presumed "asymptomatic" bacteriuria as we have more evidence--after 7 ECTs--that her "depression" may have an "organic' component and may be, in part, associated with urosepsis that would then justify antibiotic treatment. Pt has given me I/C to start antibiotic, understanding its potential SE/Risks (Gi upset, C difficile, allergic response) but understanding its potential benefit of alleviating her "depression" with its concomitant morbidity or mortality (from inanition, decreased mobility leading to further infection). he will also help address her insulin requirements and place her on better sliding scale parameters. Per RN, her FSs have never led to a humalog dosing, and at times, like this am, she is potentially too low 10/15/17 16:23 Pt present for ECT #8. She is one day into Bactrim. Score on QIDS dropped to 17/ 0. Affect a bit brighter. Able to engage in humor. Sleep good. Appetite fair. Will plan to cont treatment--acute ECT, antibiotic--unchanged for now. Have started VSL#3 for its putative benefit of reducing antibiotic induced SEs. Had indiscernable motor seizure, but nice central seizure with use of PO theophylline. Objective: Vital Signs Temp Pulse Resp BP Pulse Ox 36.4 C 60 14 121/63 H 96 10/15/17 06:00 10/15/17 06:00 10/15/17 06:00 10/14/17 08:55 10/15/17 06:00 Laboratory Results 10/10/17 06:00 ICD10 Worksheet Patient Problems: Problems Problem Status Onset Bipolar affective disorder, depressed Acute Dehydration Acute Depression Acute Diabetes Acute
[2017-10-15] MEDS: QUEtiapine FUMARATE 50 MG TAB PO SCH (19:56)
[2017-10-15] MEDS: ATORVASTATIN CALCIUM 10 MG TAB PO SCH (19:56)
[2017-10-15] MEDS: PREGABALIN 50 MG CAP PO SCH (19:57)
[2017-10-15] MEDS: INSULIN GLARGINE 100 UNITS/ML SYRINGE SC SCH (20:01)
[2017-10-15] MEDS ORDERED: INSULIN GLARGINE 100 UNITS/ML SYRINGE SC SCH (21:00)
[2017-10-16] MEDS: CHOLECALCIFEROL VIT D3 2,000 UNITS TAB/CAP PO SCH (08:18)
[2017-10-16] MEDS: FERROUS SULFATE 325 MG TAB PO SCH (08:18)
[2017-10-16] MEDS: buPROPion XL 150 MG TAB PO SCH (08:18)
[2017-10-16] MEDS: amLODIPine BESYLATE 5 MG TAB PO SCH (08:18)
[2017-10-16] MEDS: DOCUSATE SODIUM 100 MG CAP PO SCH ×2 (08:19→19:18)
[2017-10-16] MEDS: PREGABALIN 50 MG CAP PO SCH ×2 (08:23→19:17)
[2017-10-16] MEDS: metFORMIN HCL 500 MG TAB PO SCH ×2 (08:23→19:18)
[2017-10-16] MEDS: SULFAMETHOX/TMP 800/160 MG 1 TAB PO SCH ×2 (08:23→19:18)
[2017-10-16] MEDS: PANTOPRAZOLE SODIUM 40 MG TAB PO SCH (08:24)
[2017-10-16] MEDS: VSL#3 1 EACH CAP PO SCH (08:25)
[2017-10-16] MEDS: POLYETHYLENE GLYCOL 3350 17 GM PKT PO SCH (08:25)
[2017-10-16] MEDS: PSYLLIUM METAMUCIL 1 PKT PO SCH (08:26)
[2017-10-16] MEDS: INSULIN LISPRO 100 UNIT/ML SC SCH ×2 (08:40→19:32)
[2017-10-16] MEDS ORDERED: VSL#3 1 EACH CAP PO SCH (09:00)
[2017-10-16] MEDS: CRANBERRY 500 MG PO SCH (10:13)
--- NOTE | 2017-10-16 11:45 | SOAPPROG ---
SOAP Progress Note Assessment/Plan: Assessment: Plan: 10/07/17 11:44 MDD: Remains depressed. Continue current treatment plan inc: ECT. Continue contact isolation for ESBL. 10/08/17 17:24 MDD: Brighter today. CCM. 10/09/17 10:13 MDD. Continued objective improvement. CCM. 10/16/17 11:45 MDD: Gradual objective improvement. [facility]. Subjective: Pt seen, discussed with staff, chart reviewed. She reports "not feeling any different." Remains isolative in room, anergic, withdrawn. Compliant with all treatments. Objective: Vital Signs Temp Pulse Resp BP Pulse Ox 36.3 C 69 20 131/63 H 95 10/16/17 06:00 10/16/17 06:00 10/16/17 06:00 10/16/17 06:00 10/16/17 06:00 Laboratory Results 10/10/17 06:00 MSE: Calm, coop. Affect is dyphoric, blunted. Mood is "the same." TP linear. TC reveals no psychosis. - Time Spent With Patient Time Spent With Patient: 15" ICD10 Worksheet Patient Problems: Problems Problem Status Onset Bipolar affective disorder, depressed Acute Dehydration Acute Depression Acute Diabetes Acute
[2017-10-16] MEDS: QUEtiapine FUMARATE 50 MG TAB PO SCH (19:17)
[2017-10-16] MEDS: ATORVASTATIN CALCIUM 10 MG TAB PO SCH (19:18)
[2017-10-16] MEDS: INSULIN GLARGINE 100 UNITS/ML SYRINGE SC SCH (19:18)
[2017-10-17] MEDS ORDERED: ONDANSETRON DISINTEGRATING 4 MG TAB PO ONE (04:00)
[2017-10-17] MEDS ORDERED: NS 1,000 ML IV ONE (04:00)
[2017-10-17] MEDS ORDERED: LIDOCAINE 2% 5 ML SDV ID ONE (04:00)
[2017-10-17] MEDS ORDERED: CITRIC ACID/SODIUM CITRATE 30 ML UDCUP PO ONE (04:00)
[2017-10-17] MEDS ORDERED: GLYCOPYRROLATE 0.2 MG/1 ML VIAL ONE (05:56)
[2017-10-17] MEDS ORDERED: ONDANSETRON 4 MG/2 ML VIAL ONE (05:56)
[2017-10-17] MEDS ORDERED: KETOROLAC 30 MG/1 ML SDV ONE (05:56)
[2017-10-17] MEDS ORDERED: fentaNYL 100 MCG/2 ML INJ ONE (05:56)
[2017-10-17] MEDS ORDERED: ETOMIDATE 20 MG/10 ML VIAL ONE (05:56)
[2017-10-17] MEDS ORDERED: MIDAZOLAM 2 MG/2 ML VIAL ONE (05:56)
[2017-10-17] MEDS ORDERED: ROCURONIUM 50 MG/5 ML VIAL ONE (05:57)
[2017-10-17] MEDS ORDERED: SUCCINYLCHOLINE CHLORIDE 200 MG/10 ML VIAL ONE (05:57)
[2017-10-17] MEDS: buPROPion XL 150 MG TAB PO SCH (08:09)
[2017-10-17] MEDS: metFORMIN HCL 500 MG TAB PO SCH ×2 (08:10→17:13)
[2017-10-17] MEDS: amLODIPine BESYLATE 5 MG TAB PO SCH (08:11)
[2017-10-17] MEDS: FERROUS SULFATE 325 MG TAB PO SCH (08:11)
[2017-10-17] MEDS: CHOLECALCIFEROL VIT D3 2,000 UNITS TAB/CAP PO SCH (08:11)
[2017-10-17] MEDS: PREGABALIN 50 MG CAP PO SCH ×2 (08:11→19:07)
[2017-10-17] MEDS: PANTOPRAZOLE SODIUM 40 MG TAB PO SCH (08:11)
[2017-10-17] MEDS: DOCUSATE SODIUM 100 MG CAP PO SCH ×2 (08:12→19:06)
[2017-10-17] MEDS: SULFAMETHOX/TMP 800/160 MG 1 TAB PO SCH ×2 (08:12→19:06)
[2017-10-17] MEDS: CRANBERRY 500 MG PO SCH (08:12)
[2017-10-17] MEDS: POLYETHYLENE GLYCOL 3350 17 GM PKT PO SCH (08:16)
[2017-10-17] MEDS: INSULIN LISPRO 100 UNIT/ML SC SCH ×2 (08:17→19:20)
[2017-10-17] MEDS: PSYLLIUM METAMUCIL 1 PKT PO SCH (08:17)
[2017-10-17] MEDS: VSL#3 1 EACH CAP PO SCH (08:18)
[2017-10-17] MEDS ORDERED: CRANBERRY 500 MG PO SCH (09:00)
[2017-10-17] MEDS: THEOPHYLLINE ER/SR 300 MG TAB (THEO-DUR) PO SCH (13:44)
[2017-10-17] MEDS ORDERED: ONDANSETRON DISINTEGRATING 4 MG TAB ONE (14:13)
--- NOTE | 2017-10-17 15:03 | SOAPPROG ---
SOAP Progress Note Assessment/Plan: Assessment: Plan: 10/07/17 11:44 MDD: Remains depressed. Continue current treatment plan inc: ECT. Continue contact isolation for ESBL. 10/08/17 17:24 MDD: Brighter today. [facility]. 10/09/17 10:13 MDD. Continued objective improvement. CCM. 10/16/17 11:45 MDD: Gradual objective improvement. [facility]. 10/17/17 15:02 MDD: Slow improvement. [facility]. Subjective: Pt seen, discussed with staff. Reports feeling "about the same." Mood remains flat, "five out of ten." She continues to isolate in her room, refusing to go to groups stating, "That's not why I'm here." I reviewed previous PT and OT evals and they both indicate that pt's level of impairment indicates d/c to home. Pt underwent bilateral ECT under contact precautions without complication. Objective: Vital Signs Temp Pulse Resp BP Pulse Ox 36.6 C 92 20 164/78 H 92 10/17/17 06:00 10/17/17 06:00 10/17/17 06:00 10/17/17 06:00 10/17/17 06:00 Laboratory Results 10/10/17 06:00 MSE: Calm, coop. Affect is blunted, stable. Mood is "blah." TP linear. TC reveals no psychosis. Well-oriented with good A/C. - Time Spent With Patient Time Spent With Patient: 35" ICD10 Worksheet Patient Problems: Problems Problem Status Onset Bipolar affective disorder, depressed Acute Dehydration Acute Depression Acute Diabetes Acute
[2017-10-17] MEDS: QUEtiapine FUMARATE 50 MG TAB PO SCH (19:07)
[2017-10-17] MEDS: ATORVASTATIN CALCIUM 10 MG TAB PO SCH (19:09)
[2017-10-17] MEDS: INSULIN GLARGINE 100 UNITS/ML SYRINGE SC SCH (19:20)
[2017-10-18] MEDS: INSULIN LISPRO 100 UNIT/ML SC SCH ×2 (09:32→21:28)
[2017-10-18] MEDS: CRANBERRY 500 MG PO SCH (09:33)
[2017-10-18] MEDS: POLYETHYLENE GLYCOL 3350 17 GM PKT PO SCH (09:36)
[2017-10-18] MEDS: SULFAMETHOX/TMP 800/160 MG 1 TAB PO SCH ×2 (09:38→21:15)
[2017-10-18] MEDS: CHOLECALCIFEROL VIT D3 2,000 UNITS TAB/CAP PO SCH (09:38)
[2017-10-18] MEDS: PANTOPRAZOLE SODIUM 40 MG TAB PO SCH (09:39)
[2017-10-18] MEDS: metFORMIN HCL 500 MG TAB PO SCH ×2 (09:39→17:07)
[2017-10-18] MEDS: amLODIPine BESYLATE 5 MG TAB PO SCH (09:39)
[2017-10-18] MEDS: buPROPion XL 150 MG TAB PO SCH (09:39)
[2017-10-18] MEDS: FERROUS SULFATE 325 MG TAB PO SCH (09:40)
[2017-10-18] MEDS: PREGABALIN 50 MG CAP PO SCH ×2 (09:40→21:16)
[2017-10-18] MEDS: DOCUSATE SODIUM 100 MG CAP PO SCH ×2 (09:41→21:15)
[2017-10-18] MEDS: VSL#3 1 EACH CAP PO SCH (12:55)
[2017-10-18] MEDS: PSYLLIUM METAMUCIL 1 PKT PO SCH (12:55)
--- NOTE | 2017-10-18 15:02 | SOAPPROG ---
SOAP Progress Note Assessment/Plan: Assessment: Per Dr. Triplett's note: Assessment: TRD (MDD vs Bipolar vs due to medical condition) IDDM, poor mobility due to deconditioning. depression, and DPN Per Dr. Pedraza's note: 10/07/17 11:44 MDD: Remains depressed. Continue current treatment plan inc: ECT. Continue contact isolation for ESBL. 10/08/17 17:24 MDD: Brighter today. [facility]. 10/09/17 10:13 MDD. Continued objective improvement. [facility]. 10/16/17 11:45 MDD: Gradual objective improvement. [facility]. 10/17/17 15:02 MDD: Slow improvement. [facility]. 10/18/17 14:59 1. [facility] - gradual improvement 2. Insurance requested PT/OT evaluation if seeking placement in SNF. CM indicated /partner is unwilling to have patient return home b/c he doesn' t think he will be able to adequately take care of her. 3. Next ECT on Friday. Subjective: Met with patient, reviewed chart and d/w staff. Patient is lying in bed. She is on contact precautions d/t ESBL. Patient says she doesn't feel ECT is helping and doesn't feel she has improved. However, she rates her depression "5/10" which is better than at admission. She is sleeping > 8h each night, and claims her appetite is "good." She denies any SI/HI. She still refuses to attend groups and will only get out of bed to eat meals in dining room. She has been resistant to change clothes or shower, but staff report she did shower on Friday. Objective: Vital Signs Temp Pulse Resp BP Pulse Ox 36.6 C 66 16 120/59 L 92 10/18/17 06:00 10/18/17 06:00 10/18/17 06:00 10/18/17 09:39 10/18/17 06:00 Laboratory Results 10/10/17 06:00 MSE: Affect: Flat Mood: "OK" TP: Linear, logical TC: No SI/HI Insight/ Judgment: Poor - Time Spent With Patient Time Spent With Patient: 20 - Pending Discharge Pending Discharge Within 24 Hours: No Pending Discharge Within 48 Hours: No ICD10 Worksheet Patient Problems: Problems Problem Status Onset Bipolar affective disorder, depressed Acute Dehydration Acute Depression Acute Diabetes Acute
[2017-10-18] MEDS: QUEtiapine FUMARATE 50 MG TAB PO SCH (21:15)
[2017-10-18] MEDS: ATORVASTATIN CALCIUM 10 MG TAB PO SCH (21:15)
[2017-10-18] MEDS: INSULIN GLARGINE 100 UNITS/ML SYRINGE SC SCH (21:16)
[2017-10-19] MEDS: POLYETHYLENE GLYCOL 3350 17 GM PKT PO SCH (08:31)
[2017-10-19] MEDS: FERROUS SULFATE 325 MG TAB PO SCH (08:31)
[2017-10-19] MEDS: PREGABALIN 50 MG CAP PO SCH ×2 (08:31→20:40)
[2017-10-19] MEDS: amLODIPine BESYLATE 5 MG TAB PO SCH (08:31)
[2017-10-19] MEDS: DOCUSATE SODIUM 100 MG CAP PO SCH ×2 (08:31→20:39)
[2017-10-19] MEDS: SULFAMETHOX/TMP 800/160 MG 1 TAB PO SCH ×2 (08:31→20:41)
[2017-10-19] MEDS: CHOLECALCIFEROL VIT D3 2,000 UNITS TAB/CAP PO SCH (08:33)
[2017-10-19] MEDS: PANTOPRAZOLE SODIUM 40 MG TAB PO SCH (08:33)
[2017-10-19] MEDS: buPROPion XL 150 MG TAB PO SCH (08:33)
[2017-10-19] MEDS: metFORMIN HCL 500 MG TAB PO SCH ×2 (08:33→17:14)
[2017-10-19] MEDS: INSULIN LISPRO 100 UNIT/ML SC SCH ×2 (09:09→20:58)
[2017-10-19] MEDS: VSL#3 1 EACH CAP PO SCH (09:09)
[2017-10-19] MEDS: PSYLLIUM METAMUCIL 1 PKT PO SCH (09:10)
[2017-10-19] MEDS: CRANBERRY 500 MG PO SCH (09:11)
--- NOTE | 2017-10-19 11:52 | SOAPPROG ---
SOAP Progress Note Assessment/Plan: Assessment: Per Dr. Triplett's note: Assessment: TRD (MDD vs Bipolar vs due to medical condition) IDDM, poor mobility due to deconditioning. depression, and DPN Per Dr. Pedraza's note: 10/07/17 11:44 MDD: Remains depressed. Continue current treatment plan inc: ECT. Continue contact isolation for ESBL. 10/08/17 17:24 MDD: Brighter today. [facility]. 10/09/17 10:13 MDD. Continued objective improvement. [facility]. 10/16/17 11:45 MDD: Gradual objective improvement. [facility]. 10/17/17 15:02 MDD: Slow improvement. [facility]. 10/18/17 14:59 1. [facility] - gradual improvement 2. Insurance requested PT/OT evaluation if seeking placement in SNF. CM indicated /partner is unwilling to have patient return home b/c he doesn' t think he will be able to adequately take care of her. 3. Next ECT on Friday. 10/19/17 11:49 1. Clarification from yesterday, ESPERANZA told MD that insurance was requesting OT consult for placement in REHAB facility, not SNF, due to 's concerns that he could not care for patient at home and would not be able to supervise/ transport her on ECT days. So MD requested OT consult. However, this morning, ESPERANZA informed MD that said he might be able to use FMLA to take time off work to take patient to ECT and stay home with her on those days. said he would contact HR at work on Friday and discuss this option in more detail. 2. Patient is stable - [facility] 3. ECT on Friday AM Subjective: Met with patient, reviewed chart and d/w staff. Patient is lying in bed per usual routine. She got up and used walker to ambulate to dining room for breakfast. Meals are the only time she leaves her room. She left promptly before goals group started in the dining room b/c she doesn't believe she "needs " anything that groups can offer her. ESPERANZA spoke to yesterday afternoon. He was initially reluctant to have patient return home b/c he didn't feel able to look after her especially on days when she had ECT. However, he told CM that he might possibly be able to use his FMLA to take patient to her outpatient ECT and stay home with her on those days. He is going to look into this on Friday and will let CM know what he decides. MD went ahead with OT consult in case decides he would prefer patient not return home and she needs to go to rehab facility until ECT is completed. Even though patient reports there is "no change" in her condition since starting ECT, observation by staff and MD indicate she is less hopeless, less despondent and shows greater range of affect than at admission. She is sleeping and eating better than at home by her own admission. Objective: Vital Signs Temp Pulse Resp BP Pulse Ox 36.4 C 65 20 134/61 H 92 10/19/17 06:00 10/19/17 06:00 10/19/17 06:00 10/19/17 08:31 10/19/17 06:00 Laboratory Results 10/10/17 06:00 MSE: Affect: Normal range Mood: "OK" TP: Linear TC: No SI/HI, no psychotic sxs Insight/Judgment: Fair - Time Spent With Patient Time Spent With Patient: 20" - Pending Discharge Pending Discharge Within 24 Hours: No Pending Discharge Within 48 Hours: No ICD10 Worksheet Patient Problems: Problems Problem Status Onset Bipolar affective disorder, depressed Acute Dehydration Acute Depression Acute Diabetes Acute
[2017-10-19] MEDS: ATORVASTATIN CALCIUM 10 MG TAB PO SCH (20:38)
[2017-10-19] MEDS: INSULIN GLARGINE 100 UNITS/ML SYRINGE SC SCH (20:39)
[2017-10-19] MEDS: QUEtiapine FUMARATE 50 MG TAB PO SCH (20:41)
[2017-10-20] MEDS: SULFAMETHOX/TMP 800/160 MG 1 TAB PO SCH ×2 (10:42→20:50)
[2017-10-20] MEDS: VSL#3 1 EACH CAP PO SCH (10:42)
[2017-10-20] MEDS: LOSARTAN POTASSIUM 25 MG TAB PO SCH (10:42)
[2017-10-20] MEDS: CHOLECALCIFEROL VIT D3 2,000 UNITS TAB/CAP PO SCH (10:43)
[2017-10-20] MEDS: amLODIPine BESYLATE 5 MG TAB PO SCH (10:43)
[2017-10-20] MEDS: buPROPion XL 150 MG TAB PO SCH (10:43)
[2017-10-20] MEDS: PANTOPRAZOLE SODIUM 40 MG TAB PO SCH (10:43)
[2017-10-20] MEDS: FERROUS SULFATE 325 MG TAB PO SCH (10:43)
[2017-10-20] MEDS: INSULIN LISPRO 100 UNIT/ML SC SCH ×2 (10:56→21:08)
[2017-10-20] MEDS: DOCUSATE SODIUM 100 MG CAP PO SCH ×2 (10:56→20:48)
[2017-10-20] MEDS: PSYLLIUM METAMUCIL 1 PKT PO SCH (10:57)
[2017-10-20] MEDS: POLYETHYLENE GLYCOL 3350 17 GM PKT PO SCH (10:57)
[2017-10-20] MEDS: THEOPHYLLINE ER/SR 300 MG TAB (THEO-DUR) PO SCH (11:50)
[2017-10-20] MEDS ORDERED: ONDANSETRON DISINTEGRATING 4 MG TAB ONE (14:09)
[2017-10-20] MEDS ORDERED: KETOROLAC 30 MG/1 ML SDV ONE (14:22)
[2017-10-20] MEDS ORDERED: MIDAZOLAM 2 MG/2 ML VIAL ONE (14:22)
[2017-10-20] MEDS ORDERED: fentaNYL 100 MCG/2 ML INJ ONE (14:22)
[2017-10-20] MEDS ORDERED: ETOMIDATE 20 MG/10 ML VIAL ONE (14:22)
[2017-10-20] MEDS ORDERED: HYDROCODONE/APAP 5/325 TAB PO PRN (14:56)
[2017-10-20] MEDS ORDERED: PROMETHAZINE HCL 25 MG TAB PO PRN (14:56)
[2017-10-20] MEDS: metFORMIN HCL 500 MG TAB PO SCH ×2 (15:00→17:04)
--- NOTE | 2017-10-20 15:15 | SOAPPROG ---
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 depression, and DPN Plan: 09/30/17 13:35 Pt interviewed in her room, while she was lying down, fully awake. She had just been out in day room area, per patient as MD commented on his wish that she be more in the milieu. She felt only moderate LOCKWOOD, no nausea with first ECT. [place] x1 with good effect. Pt felt no change in mood. Sleep was "poor" with d/c halcion, and start of seroquel 25 mg. Latuda remains at half her dose ( 40mg). SHe was found next to bed last evening. No injury sustained. Will increase seroquel to 50 mg and instructed pt to get up from bed more slowly. Will likely reduce Latuda to 20 mg soon. May need to try other sleep aids if seroquel 50 mg inadequate. Pt will likely dispo to Assisted Living post d/c. PT consult still pnd. 10/01/17 12:27 Pt underwent ECT #2 today. No clinical change. Will add torradol for LOCKWOOD. Will cont to taper latuda to 20 mg. Started Iron. Pt states had Colonoscopy 4 years ago and was told not needed to return for 10 years. Will check hemoccult test. hs-CRP high, not surprising in context fo DM. May speak to benefit of anti inflammatory for depression. MTHFR pnd too. Will try to cont seroquel 50 for sleep for a couple of more nights before re-thinking it. Vit E and/or Gingko biloba can be tried as outpt for TD 10/02/17 12:4 10/02 Pt in day room eating lunch, Had another witnessed near-fall. Will place on LOS. Will d/c latuda altogether to decrease med SE burden. Will cont seroquel 50 mg qhs as pt said "its working" indicating sleep is better. Will cont acute inpt ECT. MTHFR and hemoccult pnd. 10/02/17 12:47 10/03/17 14:59 Pt interviewed pre ECT. She reports sleeping better with seroquel 50, minus the latuda. Appetite not so great. Her QIDs remains 17 with a score of 1 on Q 12 ( indicating some SI). Mood still subjectively unchanged, poor. However, pt appears objectively a bit brighter in affect, even evincing a smile which I had yet to see. She was told of this encouraging observation. It is, of course, unclear whether objective brightening is function of ECT vs d/c of higher dose latuda with its presumed EPS/blunting. Appreciate CC note re attempts to find post d/c placement for pt in order to finish acute course in some structured settiing away from home. 10/06/17 08:17 Appreciate MD and RN/CC notes from Weekend. Appreciate w/u for UTI, being followed by Dr Hart. Pt herself is under the assumption that it is normal colonization. No symptoms c/w UTI. Mood-jeff, pt feels no subjective change but is clearly a bit brighter in affect, able to smile and tell wry joke. He QIDs score is actually increased, consistent with her self-report of no change for the better. Sleep is described as not good, after pt declared seroquel to be helpful late last week. Appetite fair, she is eating and drinking. MTHFR is negative. No over ill effect of fairly quick d/c off of Latuda. No falls in last few days. Hopefully the d/c of latuda and halcion has benefited her gait and alertness. 10/10/17 16:16 Appreciate notes from over the last week from MDs, RN, and CC. Will call today with updates. Reviewed pts Urine C and S, with Dr Hart and ID specialist who simply provided general info as they have not seen the patient. THere is no indication to treat with antibiotic unless pt becomes symptomatic and the need for contact isolation is based on regulation for inpatient units and likely SNIF units. This colonization is not presently an issue for immunocompetent people in the community (such as ...I will reassure him abou that). Otherwise, pt has only appreciated modest change in mood with ECT. No falls. Overall, seems to have maintained an improvement in affect, albeit not quite back to her normal self. She remains anergic, isolative, impoverished, and mostly dysphoric in mood. Cont Acute Bilateral ECT into next week. CC to work on finding a Rehab unit for pt to transition through prior to going home. Will increase her remedies for constipation ( she feels it has been 3 days without a BM) 10/13/17 11:59 Pt still feels no subjective improvement. Today was ECT #7. She does report sleep as being good and appetite as fair. She lacks motivation, initiative and will. Denies active SI, but has passive SI. Will add theophyline am of ECT as motor seizure is short and will hold Lyrica x24 hours prior to each treatment. I further discussed her asymptomatic bacturia with Lilli Pedraza and Yobnai. I am concerned that it is POSSIBLE that her depression and "sickness behavior" MIGHT be contributed to by this bacteriuria. She has elevated hs-CRP, had elevated white count, and WBCs in urine, all indicating some systemic inflammation which MAY be in part of function of her "asymptomatic" infection. I also reviewed literature on asymtomatic bacteriuria in diabetics: apparently a subset of those patients DO end up with clear signs of infection or urosepsis. Hence, it is NOT a risk-free condition for her to remain untreated. I am aware, of course, of the risks of treating with antibiotics, but it is not , in my opinion, a cut and dry, unambiguous decision. I will discuss further with Dr Hart. The more ECT is done with no clear benefit, the more inclined I might be to have her bacteriuria treated as this ECT non-response may further increase the likelihood of an "organic" contributant to her depression in the form of a UTI. 10/14/17 10:53 Pt in bed mid morning, eyes closed, not sleeping. Subjectively, still reports no change with ECT. I am concerned that her ongoing apathy, abulia, "depressed " mood, anergia, amotivation and anhedonia MAY represent a mental status change (hypoactive delirium) that may have preceded ECT rather than be caused by it. However, one would expect ECT to worsen that and one can approach that possibility with either a short "pause" (ie, 5-7 days) in treatment OR continuing at a less frequent (2x/week) schedule. I spoke with Dr Hart about treating the presumed "asymptomatic" bacteriuria as we have more evidence--after 7 ECTs--that her "depression" may have an "organic' component and may be, in part, associated with urosepsis that would then justify antibiotic treatment. Pt has given me I/C to start antibiotic, understanding its potential SE/Risks (Gi upset, C difficile, allergic response) but understanding its potential benefit of alleviating her "depression" with its concomitant morbidity or mortality (from inanition, decreased mobility leading to further infection). he will also help address her insulin requirements and place her on better sliding scale parameters. Per RN, her FSs have never led to a humalog dosing, and at times, like this am, she is potentially too low 10/15/17 16:23 Pt present for ECT #8. She is one day into Bactrim. Score on QIDS dropped to 17/ 0. Affect a bit brighter. Able to engage in humor. Sleep good. Appetite fair. Will plan to cont treatment--acute ECT, antibiotic--unchanged for now. Have started VSL#3 for its putative benefit of reducing antibiotic induced SEs. Had indiscernable motor seizure, but nice central seizure with use of PO theophylline. 10/20/17 15:05 Reviewed chart from last 5 days. Pt remains isolated in room partly due to her depression related anergia, apathy, anhedonia, lack of initiative and dysphoria and partly due to the contact precautions regulatory issues. She has skin breakdown, and brittle blood sugars and her depression creates an inability for her to care for these medical comorbidities . Despite that, her affect is brighter, and she reports sleeping. Only passive SI. Mood still "depressed" but she may be amnestic for how impaired she had been pre ECT and med changes, so has impaired frame of reference for comparison. She is well into her Bactrim treatment for bacteriuria. Unclear what is duration of antibiotic therapy. Will clarify with Dr Hart. QIDS score is back up to mid twenties. Objective: Vital Signs Temp Pulse Resp BP Pulse Ox 36.5 C 65 16 131/68 H 95 10/20/17 06:00 10/20/17 06:00 10/20/17 06:00 10/20/17 10:43 10/20/17 06:00 Laboratory Results 10/10/17 06:00 ICD10 Worksheet Patient Problems: Problems Problem Status Onset Bipolar affective disorder, depressed Acute Dehydration Acute Depression Acute Diabetes Acute
[2017-10-20 16:47] VITALS: RESP 14
[2017-10-20] MEDS: CRANBERRY 500 MG PO SCH (17:06)
[2017-10-20] MEDS: PREGABALIN 50 MG CAP PO SCH ×2 (19:38→20:50)
[2017-10-20] MEDS: ATORVASTATIN CALCIUM 10 MG TAB PO SCH (20:48)
[2017-10-20] MEDS: INSULIN GLARGINE 100 UNITS/ML SYRINGE SC SCH (20:49)
[2017-10-20] MEDS: QUEtiapine FUMARATE 50 MG TAB PO SCH (20:50)
[2017-10-21 06:30] VITALS: PULSE 68; TEMP 98; O2SAT 93
[2017-10-21] MEDS: CHOLECALCIFEROL VIT D3 2,000 UNITS TAB/CAP PO SCH (08:39)
[2017-10-21] MEDS: CRANBERRY 500 MG PO SCH (08:39)
[2017-10-21] MEDS: SULFAMETHOX/TMP 800/160 MG 1 TAB PO SCH (08:40)
[2017-10-21] MEDS: LOSARTAN POTASSIUM 25 MG TAB PO SCH (08:40)
[2017-10-21] MEDS: PANTOPRAZOLE SODIUM 40 MG TAB PO SCH (08:40)
[2017-10-21] MEDS: metFORMIN HCL 500 MG TAB PO SCH ×2 (08:40→18:16)
[2017-10-21] MEDS: buPROPion XL 150 MG TAB PO SCH (08:44)
[2017-10-21] MEDS: POLYETHYLENE GLYCOL 3350 17 GM PKT PO SCH ×2 (08:44→10:08)
[2017-10-21] MEDS: DOCUSATE SODIUM 100 MG CAP PO SCH (08:44)
[2017-10-21] MEDS: FERROUS SULFATE 325 MG TAB PO SCH (08:44)
[2017-10-21] MEDS: PREGABALIN 50 MG CAP PO SCH (08:44)
[2017-10-21 08:45] VITALS: BP 138/65
[2017-10-21] MEDS: amLODIPine BESYLATE 5 MG TAB PO SCH (08:47)
[2017-10-21] MEDS: INSULIN LISPRO 100 UNIT/ML SC SCH (10:05)
[2017-10-21] MEDS: VSL#3 1 EACH CAP PO SCH (10:08)
[2017-10-21] MEDS: PSYLLIUM METAMUCIL 1 PKT PO SCH (10:09)
[2017-10-21] MEDS ORDERED: INSULIN GLARGINE 100 UNITS/ML SYRINGE SC SCH (10:56)
--- NOTE | 2017-10-21 13:12 | SOAPPROG ---
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 depression, and DPN Plan: 09/30/17 13:35 Pt interviewed in her room, while she was lying down, fully awake. She had just been out in day room area, per patient as MD commented on his wish that she be more in the milieu. She felt only moderate LOCKWOOD, no nausea with first ECT. Parkin x1 with good effect. Pt felt no change in mood. Sleep was "poor" with d/c halcion, and start of seroquel 25 mg. Latuda remains at half her dose ( 40mg). SHe was found next to bed last evening. No injury sustained. Will increase seroquel to 50 mg and instructed pt to get up from bed more slowly. Will likely reduce Latuda to 20 mg soon. May need to try other sleep aids if seroquel 50 mg inadequate. Pt will likely dispo to Assisted Living post d/c. PT consult still pnd. 10/01/17 12:27 Pt underwent ECT #2 today. No clinical change. Will add torradol for LOCKWOOD. Will cont to taper latuda to 20 mg. Started Iron. Pt states had Colonoscopy 4 years ago and was told not needed to return for 10 years. Will check hemoccult test. hs-CRP high, not surprising in context fo DM. May speak to benefit of anti inflammatory for depression. MTHFR pnd too. Will try to cont seroquel 50 for sleep for a couple of more nights before re-thinking it. Vit E and/or Gingko biloba can be tried as outpt for TD 10/02/17 12:4 10/02 Pt in day room eating lunch, Had another witnessed near-fall. Will place on LOS. Will d/c latuda altogether to decrease med SE burden. Will cont seroquel 50 mg qhs as pt said "its working" indicating sleep is better. Will cont acute inpt ECT. MTHFR and hemoccult pnd. 10/02/17 12:47 10/03/17 14:59 Pt interviewed pre ECT. She reports sleeping better with seroquel 50, minus the latuda. Appetite not so great. Her QIDs remains 17 with a score of 1 on Q 12 ( indicating some SI). Mood still subjectively unchanged, poor. However, pt appears objectively a bit brighter in affect, even evincing a smile which I had yet to see. She was told of this encouraging observation. It is, of course, unclear whether objective brightening is function of ECT vs d/c of higher dose latuda with its presumed EPS/blunting. Appreciate CC note re attempts to find post d/c placement for pt in order to finish acute course in some structured settiing away from home. 10/06/17 08:17 Appreciate MD and RN/CC notes from Weekend. Appreciate w/u for UTI, being followed by Dr Hart. Pt herself is under the assumption that it is normal colonization. No symptoms c/w UTI. Mood-jeff, pt feels no subjective change but is clearly a bit brighter in affect, able to smile and tell wry joke. He QIDs score is actually increased, consistent with her self-report of no change for the better. Sleep is described as not good, after pt declared seroquel to be helpful late last week. Appetite fair, she is eating and drinking. MTHFR is negative. No over ill effect of fairly quick d/c off of Latuda. No falls in last few days. Hopefully the d/c of latuda and halcion has benefited her gait and alertness. 10/10/17 16:16 Appreciate notes from over the last week from MDs, RN, and CC. Will call today with updates. Reviewed pts Urine C and S, with Dr Hart and ID specialist who simply provided general info as they have not seen the patient. THere is no indication to treat with antibiotic unless pt becomes symptomatic and the need for contact isolation is based on regulation for inpatient units and likely SNIF units. This colonization is not presently an issue for immunocompetent people in the community (such as ...I will reassure him abou that). Otherwise, pt has only appreciated modest change in mood with ECT. No falls. Overall, seems to have maintained an improvement in affect, albeit not quite back to her normal self. She remains anergic, isolative, impoverished, and mostly dysphoric in mood. Cont Acute Bilateral ECT into next week. CC to work on finding a Rehab unit for pt to transition through prior to going home. Will increase her remedies for constipation ( she feels it has been 3 days without a BM) 10/13/17 11:59 Pt still feels no subjective improvement. Today was ECT #7. She does report sleep as being good and appetite as fair. She lacks motivation, initiative and will. Denies active SI, but has passive SI. Will add theophyline am of ECT as motor seizure is short and will hold Lyrica x24 hours prior to each treatment. I further discussed her asymptomatic bacturia with Lilli Pedraza and Yobani. I am concerned that it is POSSIBLE that her depression and "sickness behavior" MIGHT be contributed to by this bacteriuria. She has elevated hs-CRP, had elevated white count, and WBCs in urine, all indicating some systemic inflammation which MAY be in part of function of her "asymptomatic" infection. I also reviewed literature on asymtomatic bacteriuria in diabetics: apparently a subset of those patients DO end up with clear signs of infection or urosepsis. Hence, it is NOT a risk-free condition for her to remain untreated. I am aware, of course, of the risks of treating with antibiotics, but it is not , in my opinion, a cut and dry, unambiguous decision. I will discuss further with Dr Hart. The more ECT is done with no clear benefit, the more inclined I might be to have her bacteriuria treated as this ECT non-response may further increase the likelihood of an "organic" contributant to her depression in the form of a UTI. 10/14/17 10:53 Pt in bed mid morning, eyes closed, not sleeping. Subjectively, still reports no change with ECT. I am concerned that her ongoing apathy, abulia, "depressed " mood, anergia, amotivation and anhedonia MAY represent a mental status change (hypoactive delirium) that may have preceded ECT rather than be caused by it. However, one would expect ECT to worsen that and one can approach that possibility with either a short "pause" (ie, 5-7 days) in treatment OR continuing at a less frequent (2x/week) schedule. I spoke with Dr Hart about treating the presumed "asymptomatic" bacteriuria as we have more evidence--after 7 ECTs--that her "depression" may have an "organic' component and may be, in part, associated with urosepsis that would then justify antibiotic treatment. Pt has given me I/C to start antibiotic, understanding its potential SE/Risks (Gi upset, C difficile, allergic response) but understanding its potential benefit of alleviating her "depression" with its concomitant morbidity or mortality (from inanition, decreased mobility leading to further infection). he will also help address her insulin requirements and place her on better sliding scale parameters. Per RN, her FSs have never led to a humalog dosing, and at times, like this am, she is potentially too low 10/15/17 16:23 Pt present for ECT #8. She is one day into Bactrim. Score on QIDS dropped to 17/ 0. Affect a bit brighter. Able to engage in humor. Sleep good. Appetite fair. Will plan to cont treatment--acute ECT, antibiotic--unchanged for now. Have started VSL#3 for its putative benefit of reducing antibiotic induced SEs. Had indiscernable motor seizure, but nice central seizure with use of PO theophylline. 10/20/17 15:05 Reviewed chart from last 5 days. Pt remains isolated in room partly due to her depression related anergia, apathy, anhedonia, lack of initiative and dysphoria and partly due to the contact precautions regulatory issues. She has skin breakdown, and brittle blood sugars and her depression creates an inability for her to care for these medical comorbidities . Despite that, her affect is brighter, and she reports sleeping. Only passive SI. Mood still "depressed" but she may be amnestic for how impaired she had been pre ECT and med changes, so has impaired frame of reference for comparison. She is well into her Bactrim treatment for bacteriuria. Unclear what is duration of antibiotic therapy. Will clarify with Dr Hart. QIDS score is back up to mid twenties. 10/21/17 13:05 Pt interviewed in room. She was awake but lying in bed. States she is eating ok and sleep marked by initial insomnia. Will Rx melatonin 6 mg for that as seroquel allows her to stay asleep once there. affect remains brighter and her level of hopelessness. Pt is finished with one week Bactrim course and will need no more. Need to remain on contact precautions, per regulations, while in hospital. Will cont acute ECT but likely start to taper to 2x/week next week. Will speak with re taking [place] time to care for pt. I will fill out paperwork as soon as it arrive.s Objective: Vital Signs Temp Pulse Resp BP Pulse Ox 36.6 C 68 14 138/65 H 93 10/21/17 06:00 10/21/17 06:00 10/21/17 06:00 10/21/17 08:47 10/21/17 06:00 Laboratory Results 10/10/17 06:00 ICD10 Worksheet Patient Problems: Problems Problem Status Onset Bipolar affective disorder, depressed Acute Dehydration Acute Depression Acute Diabetes Acute
[2017-10-21] MEDS ORDERED: MELATONIN 3 MG TAB PO SCH (21:00)
[2017-10-22] MEDS ORDERED: LIDOCAINE 2% 5 ML SDV ID ONE (04:00)
[2017-10-22] MEDS ORDERED: CITRIC ACID/SODIUM CITRATE 30 ML UDCUP PO ONE (04:00)
[2017-10-22] MEDS ORDERED: ONDANSETRON DISINTEGRATING 4 MG TAB PO ONE (04:00)
[2017-10-22] MEDS ORDERED: NS 1,000 ML IV ONE (04:00)
--- NOTE | 2017-10-22 09:50 | GDS ---
[f rep st] DISCHARGE SUMMARY IDENTIFYING DATA: This patient is a 67-year-old white female, living in [place] with her . She is on disability as a development technical lead. Her outpatient psychiatrist is Joey Champagne MD, who had originally referred her for second opinion regarding ECT. She has a long history of depression, wit h no prior psychiatric hospitalizations. REASON FOR ADMISSION: The patient is suffering from her worst ever and now treatment resistant depre ssion, in the wake of a lengthy med/surg hospitalization for pneumonia and renal failure. Her sympto ms include profound anergia, amotivation, anhedonia, hopelessness, passive suicidal ideation, grossly diminished hygiene and ADLs, and inability to care for her not insignificant medical needs. This in cludes an inability to do the physical therapy and occupational therapy that is so vital after the de conditioning from her nearly 1 month hospitalization, decreased p.o. intake, with loss of 40 pounds i n a patient who has insulin-dependent diabetes with fluctuating blood sugars, and a lack of initiativ e to the point where she would not take any of her medication were it not for her 's support a nd prodding. In terms of her mood status, her mood diagnosis, there is some uncertainty in this tom ent per Dr. Champagne, who is treating her as more than likely on the bipolar spectrum. MEDICATIONS AT TIME OF ADMISSION: Included Lyrica, metformin, amlodipine, losartan, Protonix, Latuda , Wellbutrin, iron, Lantus Pen 15 units twice daily, and NovoLog Pen 5 mg twice daily as needed. The notable and potentially life-threatening aspect to this patient's depression is her inability to thrive as one would expect, after the 3-1/2 week med/surg hospitalization. She presented initially a s virtually immobile, being able only to walk short distances with a walker, but otherwise getting ar ound only with the help of a wheelchair and constant vigilance from her , therefore, if he is at work she is essentially bedbound. The immobilization itself puts her at risk for further medical compromise, such as skin breakdown, pneumonia or DVT. By history, the patient has been on multiple t rials of SSRIs, SNRIs, tricyclic antidepressants, augmentation strategies, and some mood stabilizing regimen, such as Lamictal, Abilify, Latuda, and psychostimulants. She uses a sleep aid, Triazolam. Her medical status, which show tied inexplicably to her mood disorder, in an interdependent way, incl udes the recent pneumonia and renal infection being nearly wheelchair-bound due to the physical decon ditioning, peripheral diabetic neuropathy and being overweight. PHYSICAL EXAMINATION: Performed by Leobardo Hart, which reveals: 1. Debility. Physical therapy and occupational therapy evaluations have been ordered by attending p sychiatrist, and this is quite appropriate for her to improve her functional status to return home. 2. Chronic renal insufficiency, stage 3. She should avoid nephrotoxic drugs and there should be jessica e caution regarding dehydration, especially when she is nothing per mouth for electroconvulsive thera py. Adequate hydration should be incurred when she is not n.p.o. 3. Diabetes mellitus type 2, with last hemoglobin A1c of 6.4. She was not certain whether her insul in had been reduced following her weight loss. She does report that she had 1 episode of hypoglycemi a, with a blood sugar of 22, otherwise, blood sugars fasting have generally been in the range of 80 t o 100. Continue to monitor blood sugars and consider reduction of insulin glargine, should she be ru nning low. Would advise continuing metformin, which has been held today, though I am not clear wheth er there is an indication to hold metformin with ECT, so I will defer to Psychiatry. 4. Diabetic peripheral neuropathy. This may affect her safe ambulating. She has a front wheeled wa lker in the room, and will have physical therapy evaluation. 5. Hypertension. Likely has adequate control with current antihypertensives. Continue to monitor a nd consider dose adjustment if necessary. 6. Dyslipidemia. Continue atorvastatin. 7. Anemia, unclear etiology. We will add a reticulocyte count, and an iron panel to the blood that was drawn yesterday in the emergency department. I see no medical contraindication to the patient's continued stay in the inpatient health unit or to any psychiatric medications or procedures. LAB WORK: The patient initially did have leukocytosis, with a white count of 13.65, on 09/28, which when retested on 10/10, was reduced to 9.79. She was anemic, with a hematocrit of 36. Random glucos e testing was done throughout her hospital stay, which was never revealed as significantly elevated, but she had had some low readings into the 60s. Urine toxicology was negative. MTHFR C677T mutation was negative. Urinalysis on 10/04 was done due to foul smelling urine, and she was found to have el evated leukocyte esterase, white blood cells, and urine bacteria. Urine culture was done and she was found to have Klebsiella pneumonia, ESBL, which was found to be sensitive to 6 antibiotics, includin g Bactrim, and nitrofurantoin. This will be addressed during hospital course. HOSPITAL COURSE: The patient and were reviewed psychoeducation with the technical publications writer about ECT, in cluding its risks, benefits, and alternatives, and they both gave informed consent for her to begin a cute bilateral ECT. We chose bilateral as we wish to expedite her recovery and reduce her total numb er of treatments given her medical compromise. In other words, the "risk" of greater cognitive impai rment was outweighed by the risk of unnecessarily lengthy course of ECT, in a patient with some signi ficant medical issues from her depression and those independent of her depression, both of which cons pired to make further time in her present state a period of high morbidity, if not mortality. In con sultation with her outpatient psychiatrist, Dr. Champagne, we decided also to make some medication morejon es, reducing medications that may be contributing, rather than helping her mood state. Hence, her La tuda, which was at 80 mg was tapered completely off over the course of a week. Likewise, her high po tency benzodiazepine, Halcion or triazolam, was likewise discontinued (this medication has significant effects on cognition and puts her at risk, especially in her already impaired physical state for falls). In its place, S eroquel 25 mg was started and titrated up to 50 mg. PT and OT consult were completed, and for reason s I am simply unclear about, determined that she would not benefit or did not have the need for ongoi ng intervention during this hospital stay. The patient was found to have what Dr. Hart believes is iron deficiency anemia. It is unclear whether she had been compliant with her iron supplementation, which was restarted. She had a colonoscopy 4 years ago, and was told she did not need to return for 10 years. The patient does have evidence of tardive dyskinesia, and it was hoped that the discontin uation of her Latuda and replacement of it with low-dose Seroquel might aid that. She understands th at vitamin E and/or ginkgo biloba can be tried as an outpatient for this, and that there is a new med ication if it proves to be problematic for her. The weekend of 10/06, the doctor sales communications manager noted the f oul smelling urine and ordered the urinalysis, which revealed the ultimate diagnosis of Klebsiella ES BL. At first, Dr. Hart and Infectious Disease recommended no treatment for this presumed asymptoma tic bacteriuria. However, as the patient had undergone 7 ECT treatments, and only had some modest im provement at that point, the technical publications writer discussed with Dr. Hart, the possibility that this patient migh t be revealing effects from this colonization that were more central and beyond her genitourinary tra ct. In other words, she did not have dysuria, flank pain, or fever, but had what could be arguably h ypoactive delirium, or lethargy that was being interpreted as depression, that could in fact be contr ibuted to by a smoldering infection. He accepted this rationale and proceeded with treating the tom ent with 1 week on Bactrim. The end of that treatment correlated with her last inpatient ECT. She h ad a total of 10 treatments, thus, overall, she had a reduction in medications that the technical publications writer felt c ould be contributed to lethargy and anergia, treatment of a colonization that might have been contrib uting to her mental status, and 10 bilateral acute ECT treatments. Unfortunately, she only had parti al improvements, compared to admission. Mostly her affect was brighter, and she was able to smile, a nd even at times laugh, and engage with peers, but remains subjectively "depressed" with some hopeles sness and passive suicidality. Furthermore, she remained physically mostly bedridden. However, that fact could be attributed to her having to stay isolated due to this bacterial colonization that forc ed her to be on contact isolation precautions. She was eager to get home, as she would be able to be off those precautions, and move around more freely in her own home, which she was expressing a guillermo e to do, another change from her pre-hospital baseline. Furthermore, she was noted to be using her w alker more easily, and did not seem to rely as much on the wheelchair. I had had a couple of lengthy discussions with patient's during this hospital stay. He understands that she has had parti al improvement at this point, but that we are not complete with the acute treatment and that some pat ients reveal further benefits a few weeks or more beyond the acute phase of their ECT when the effect s of cognitive impairment have abated. Some of those effects, other than short-term memory, could include apathy, and lack of initiative, which happened to be very similar to her symptoms of depression, but thankfully julia remi lucero a few weeks of the acute phase of ECT. I described to him at length the medication changes that were made, including a decrease in her insulin dosing, which is likely reflective of her weight loss over this l ast number of months. MEDICATIONS UPON DISCHARGE: Seroquel 50 mg p.o. q.h.s., Lyrica 50 mg p.o. b.i.d., Protonix 40 mg p.o . daily, metformin 1000 mg b.i.d., losartan 25 mg p.o. daily, melatonin 6 mg p.o. q.h.s., Metamucil 1 packet p.o. daily, insulin glargine 17 units subcu h.s., and insulin lispro per sliding s elzbieta, ferrous sulfate 325 mg p.o. daily, Colace 100 mg p.o. b.i.d., vitamin D3 8000 units p.o. daily, Wellbutrin XL 300 mg p.o. daily, Lipitor 10 mg p.o. q.h.s., Norvasc 2.5 mg p.o. daily (the patient i s now off triazolam and lurasidone). DISPOSITION: The patient will return home, to the care of her , who has taken [facility] time off t o provide the necessary 24/7 supervision. He understands that he needs to do that during the acute E CT and for a couple of weeks beyond that. He must dispense and monitor all medications, including he r insulin, and check her blood sugars. He is aware of the n.p.o. rules for outpatient ECT. He under stands to give all of her morning medications with some clear fluids, with the exception of Lyrica, w hich should be skipped all together the mornings of ECT. I recommend that she get a good probiotic, with at least 50 billion units, and take it for the next 2 weeks, having just received a week of Bact rim. Other aesh-trx-wirqyer supplements recommended include the melatonin, vitamin D3, and Metamucil . She should follow up with her primary care doc as soon as possible, regarding her diabetes and red uced insulin requirement. He should also be aware of the bacteriuria found and treatment with Bactri m. They should follow up with PT and OT in home, to see if more care is warranted, as she had been r eceiving it prior to the hospital stay, albeit, without much benefit given her degree of depression. They should follow up with Dr. Champagne in the next 2-3 weeks. Per infectious disease doctor, no spec ial precautions are needed for the bacteria discovered in the urine. Normal hand washing and good hygiene only. PLAN: At this time is to finish up acute ECT this week, and then likely due at least twice weekly th e following week. After that, we may switch to once per week, 2-3 times prior to tapering out the in terval further. DISCHARGE DIAGNOSES: Winigan I: Mood disorder, not otherwise specified (rule out major depressive diso rder, severe, versus bipolar disorder, not otherwise specified, versus mood disorder due to general m edical condition). Winigan II: Deferred. Winigan III: Status post pneumonia and renal infection; overweight; diabetic peripheral neuropathy; iro n deficiency anemia; almost wheelchair-bound due to post hospitalization deconditioning and poor comp liance with physical and occupational therapy due to depression, and other medical variables, recent treatment for Klebsiella colonization, found to be susceptible to Bactrim. Winigan IV: Moderate. Axid V: 45. /[id number]/MODL
== END 2017-10-21 18:59 | disposition home or self-care (01) | DRG 885 ==
LOC: BBEH 21:10
PROVIDERS: ADMIT Psychiatry & Neurology Psychiatry; ATTEND Psychiatry & Neurology Psychiatry
PROC: GZB0ZZZ Electroconvulsive Therapy, Unilateral-Single Seizure (ICD-10-PCS; principal; 2017-09-30)
DX: F39 Unspecified mood [affective] disorder (principal); R82.71 Bacteriuria; E66.3 Overweight; E78.5 Hyperlipidemia, unspecified; E11.42 Type 2 diabetes mellitus with diabetic polyneuropathy; Z79.4 Long term (current) use of insulin; D50.9 Iron deficiency anemia, unspecified; R53.81 Other malaise; N18.3 Chronic kidney disease, stage 3 (moderate); I12.9 Hypertensive chronic kidney disease with stage 1 through stage 4 chronic kidney disease, or unspecified chronic kidney disease; Z87.891 Personal history of nicotine dependence
CPT/HCPCS: 80305; 81291-90; 86141-90; 97161-GP; 97165-GO; 97530-GP; G8987-GO-CI; G8988-GO-CI; G8989-GO-CI; J0330; J1815; J1885; J2250; J2405; J3010